=== PATIENT | female | born 1960 | race Caucasian/White ===

== ENCOUNTER 2024-05-18 12:26 | Inpatient (IN) | payer MEDICAID, OTHER ==
[~2024-05-18] VITALS: Ht 152.4 cm; Wt 89.2 kg
--- NOTE | 2024-05-18 13:17 | ED.PDOC ---
GI ASSESSMENT HPI Comments 64y F who presents to the ED for chief complaint of abdominal pain. Pt states she has been having lower abdominal pain for the past 5 days. Pt states she has history of cirrhosis and states she has ran out of her cirrhosis medications. Pt states she has been having associated changes in vision and dizziness and changes in mentation. Pt in the ED,is alert and oriented x 4 and able to answer all questions. Pt states she recently got new insuranance and is now able to see a provider. pt otherwise denies any other symptoms at this time. Chief Complaint: Abdominal Pain Time Seen by MD: 13:13 Reviewed Notes: Medications, Allergies Allergies: Coded Allergies: NO KNOWN ALLERGIES (Unverified , 05/18/24) Information Source: Patient Mode of Arrival: Ambulatory Brought in by: self Past Medical History Past Medical History (Other): cirrhosis Surgical History: Denies all surgeries WAX SPECIALIST History: Denies all WAX SPECIALIST Hx Family History Family History: Reviewed,noncontributory to illness Social History Smoker: Non-Smoker Alcohol: Heavy Drugs: Denies Drug Use Lives In: Home Constitutional: reports: malaise, weakness; denies: chills, diaphoresis, fatigue, fever, sweats, others EENTM: denies: blurred vision, double vision, ear bleeding, ear discharge, ear drainage, ear pain, ear ringing, eye pain, eye redness, hearing loss, mouth pain, mouth swelling, nasal discharge, nose bleeding, nose congestion, nose pain, photophobia, tearing, throat pain, throat swelling, voice changes, others Respiratory: denies: cough, hemoptysis, orthopnea, SOB at rest, shortness of breath, SOB with excertion, stridor, wheezing, others Cardiovascular: denies: chest pain, dizzy spells, diaphoresis, Dyspnea on exertion, edema, irregular heart beat, left arm pain, lightheadedness, palpitations, PND, syncope, others Gastrointestinal: denies: abdomen distended, abdominal pain, blood streaked bowels, constipated, diarrhea, dysphagia, difficulty swallowing, hematemesis, melena, nausea, poor appetite, poor fluid intake, rectal bleeding, rectal pain, vomiting, others Genitourinary: denies: abnormal vagina bleeding, burning, dyspareunia, dysuria, flank pain, frequency, hematuria, incontinence, pain, , vagina discharge, urgency, others Neurological: reports: dizziness; denies: fainting, headache, left sided numbness, left sided weakness, numbness, paresthesia, pre-existing deficit, right sided numbness, right sided weakness, seizure, speech problems, tingling, tremors, weakness, others Musculoskeletal: denies: back pain, gout, joint pain, joint swelling, muscle pain, muscle stiffness, neck pain, others Integumetry: denies: bruises, change in color, change in hair/nails, dryness, laceration, lesions, lumps, rash, wounds, others Allergic/Immunocompromised: denies: Difficulty Healing, Frequent Infections, Hives, Itching, others Hematologic/Lymphatic: denies: anemia, blood clots, easy bleeding, easy bruising, swollen glands, others Endocrine: denies: excessive hunger, excessive sweating, excessive thirst, excessive urination, flushing, intolerance to cold, intolerance to heat, un explained weight gain, unexplained weight loss, others Psychiatric: denies: anxiety, bipolar disorder, depression, hopeless, panic disorder, schizophrenia, sleepless, suicidal, others All Other Systems: Reviewed and Negative Physical Exam General Appearance: Mild Distress HEENT: Normal ENT Inspection, Pharynx Normal, TMs Normal Neck: Full Range of Motion, Non-Tender, Normal, Normal Inspection Respiratory: Chest Non-Tender, Lungs Clear, No Accessory Muscle Use, No Respiratory Distress, Normal Breath Sounds Cardiovascular: No Edema, No JVD, No Murmur, No Gallop, Normal Peripheral Pulses, Regular Rate/Rhythm Breast Exam: Deferred Gastrointestinal: No Organomegaly, Non Tender, No Pulsatile Mass, Normal Bowel Sounds, Soft Genitalia: Deferred Pelvic: Deferred Rectal: Deferred Extremities: No calf tenderness, Normal capillary refill, Normal inspection, Normal range of motion, Non-tender, No pedal edema Musculoskeletal : Apperance: Normal Neurologic: Other (mild Asterixis noted to bilateral arms) Cerebellar Function: Normal Reflexes: Normal Skin: Dry, Normal Color, Warm Lymphatic: No Adenopathy Was a procedure done? Was a procedure done?: No GI differential Dx Differential Diagnosis: Esophagitis, Gastritis/PUD, Gastroenteritis, UTI, Dehydration, Esophageal Varicies Other Differential Diagnosis liver disease, cirrhosis, hyperammonemia, electrolyte abnormality X-Ray, Labs, Meds, VS Vital Signs Date Time Temp Pulse Resp B/P (MAP) Pulse Ox O2 Delivery O2 Flow Rate FiO2 05/18/24 12:58 80 05/18/24 12:55 98.0 81 18 116/60 (78) 99 Lab Test 05/18/24 14:15 05/18/24 13:24 Range/Units Troponin I High Sensitivity < 3 L 3 L </=34 ng/L White Blood Count 11.6 H 4.4-10.8 10^3/uL Red Blood Count 3.81 L 4.0-5.20 10^6/uL Hemoglobin 12.4 12.2-16.2 g/dL Hematocrit 36.3 36.0-46.0 % Mean Corpuscular Volume 95.3 80.0-100.0 fL Mean Corpuscular Hemoglobin 32.7 H 28.0-32.0 pg Mean Corpuscular Hemoglobin Concent 34.3 32.0-36.0 g/dL Red Cell Distribution Width 15.8 H 11.8-14.3 % Platelet Count 201 140-450 10^3/uL Mean Platelet Volume 8.6 6.9-10.8 fL Neutrophils (%) (Auto) 58.0 37.0-80.0 % Lymphocytes (%) (Auto) 27.6 10.0-50.0 % Monocytes (%) (Auto) 12.4 H 0.0-12.0 % Eosinophils (%) (Auto) 1.3 0.0-7.0 % Basophils (%) (Auto) 0.7 0.0-2.0 % Neutrophils # (Auto) 6.7 1.6-8.6 10 ^3/uL Lymphocytes # (Auto) 3.2 0.4-5.4 10 ^3/uL Monocytes # (Auto) 1.4 H 0-1.3 10 ^3/uL Eosinophils # (Auto) 0.2 0-0.8 10 ^3/uL Basophils # (Auto) 0.1 0-0.2 10 ^3/uL Nucleated Red Blood Cells 0.0 % Prothrombin Time 20.4 H 9.3-11.8 sec Prothrombin Time INR 2.03 H 0.9-1.15 Activated Partial Thromboplast Time 35.4 H 24.5-34.5 SEC Sodium Level 145 136-145 mmol/L Potassium Level 3.6 3.5-5.1 mmol/L Chloride Level 110 H 98-107 mmol/L Carbon Dioxide Level 27 20-31 mmol/L Anion Gap 8 5-15 Blood Urea Nitrogen 7 L 9-23 mg/dL Creatinine 0.49 L 0.550-1.02 mg/dL Glomerular Filtration Rate Calc 106 >90 mL/min BUN/Creatinine Ratio 14.3 10.0-20.0 Serum Glucose 92 74-106 mg/dL Calcium Level 8.9 8.7-10.4 mg/dL Total Bilirubin 3.9 H 0.2-1.0 mg/dL Aspartate Amino Transferase (AST) 71 H 13-40 U/L Alanine Aminotransferase (ALT) 55 H 7-40 U/L Alkaline Phosphatase 199 H 46-116 U/L Ammonia 48 H 11-32 umol/L Total Protein 6.4 5.7-8.2 g/dL Albumin 2.5 L 3.2-4.8 g/dL Time of 1ST Reevaluation: 13:45 Reevaluation 1ST: Unchanged Patient Education/Counseling: Diagnosis, Treatment Family Education/Counseling: No Family Present Departure 1 Departure Time of Disposition: 16:19 (Patient with concern for hepatic encephalopathy with elevated ammonia and worsening confusion. We will admit patient for further workup) Impression: Primary Impression: Hyperammonemia Additional Impressions: Altered mental status Qualified Codes: R41.0 - Disorientation, unspecified Hepatic encephalopathy Disposition: ADMITTED INPATIENT Admit to: Med Surg Condition: Serious Critical Care Note Critical Care Time?: No Stability Stability form required: No Heart Score Heart Score: Heart Score Response (Comments) Value History N/A 0 EKG N/A 0 Age N/A 0 Risk Factors N/A 0 Troponin N/A 0 Total 0 I personally scribed for KACY SIMS MD ([email or web address]) on 05/18/24 at 13:16. Electronically submitted by Mercedez Huddleston ([email or web address]). KACY SIMS MD May 18, 2024 13:16
[2024-05-18 13:48] LABS: Basophils # (auto) 0.1 10 ^3/uL (0-0.2); Basophils % (auto) 0.7 % (0.0-2.0); Eosinophils # (auto) 0.2 10 ^3/uL (0-0.8); Eosinophils % (auto) 1.3 % (0.0-7.0); Hematocrit 36.3 % (36.0-46.0); Hemoglobin 12.4 g/dL (12.2-16.2); Lymphocytes # (auto) 3.2 10 ^3/uL (0.4-5.4); Lymphocytes % (auto) 27.6 % (10.0-50.0); Mean Corpuscular Hemoglobin 32.7 pg (28.0-32.0); Mean Corpuscular Hgb Conc. 34.3 g/dL (32.0-36.0); Mean Corpuscular Volume 95.3 fL (80.0-100.0); Monocytes # (auto) 1.4 10 ^3/uL (0-1.3); Monocytes % (auto) 12.4 % (0.0-12.0); Neutrophils # (auto) 6.7 10 ^3/uL (1.6-8.6); Platelet Count (auto) 201 10^3/uL (140-450); Red Blood Cells 3.81 10^6/uL (4.0-5.20); Red Cell Distribution Width 15.8 % (11.8-14.3); White Blood Cell 11.6 10^3/uL (4.4-10.8)
[2024-05-18 14:08] LABS: Alanine Aminotransferase 55 U/L (7-40); Albumin 2.5 g/dL (3.2-4.8); Alkaline Phosphatase 199 U/L (46-116); Anion Gap 8 (5-15); Aspartate Aminotransferase 71 U/L (13-40); BUN/Creatinine Ratio 14.3 (10.0-20.0); Bilirubin, Total 3.9 mg/dL (0.2-1.0); Blood Urea Nitrogen 7 mg/dL (9-23); Calcium 8.9 mg/dL (8.7-10.4); Carbon Dioxide 27 mmol/L (20-31); Chloride 110 mmol/L (98-107); Glucose 92 mg/dL (74-106); Potassium 3.6 mmol/L (3.5-5.1); Sodium 145 mmol/L (136-145); Total Protein 6.4 g/dL (5.7-8.2)
[2024-05-18 14:34] LABS: INR 2.03 (0.9-1.15); Partial Thromboplastin Time 35.4 SEC (24.5-34.5); Prothrombin Time 20.4 sec (9.3-11.8)
[2024-05-18 21:32] VITALS: BP 114/60; PULSE 87; RESP 18; TEMP 98.3
[2024-05-18] MEDS: SODIUM CHLORIDE 0.9% 1,000 ML IV SCH (22:00)
[2024-05-18] MEDS ORDERED: MORPHINE SULFATE INJ 2 MG/ml SYRG IV PRN (22:00)
[2024-05-18] MEDS ORDERED: NITROGLYCERIN 0.4 MG SL TAB SL PRN (22:00)
[2024-05-18] MEDS: POTASSIUM CHL 20MEQ/100ML 100 ML IV SCH (22:00)
[2024-05-18] MEDS ORDERED: ONDANSETRON HCL 4 MG/2 ML VIAL IV PRN (22:00)
[2024-05-18] MEDS ORDERED: SIMETHICONE 80 MG CHEWABLE TABLET PO PRN (23:30)
[2024-05-18] MEDS: cefTRIAXone 2GM/50ML D5W 50 ML IV SCH (23:45)
--- NOTE | 2024-05-19 04:16 | DVH ---
INDICATION: Hepatobiliary obstruction TECHNIQUE: Multiple real-time sonographic images of the abdomen were obtained. COMPARISON: None FINDINGS: The liver is increased in echogenicity. The liver measures 16.9 cm. No intrahepatic biliar y ductal dilatation is noted. Hepatopetal flow in the main portal vein. The gallbladder is not visualized. The common duct measures 0.5 cm and is unremarkable. No perichol ecystic fluid is noted. Negative sonographic Staton's sign. The right kidney measures 10.7 cm. No hydronephrosis. The pancreas is not well visualized due to obscuration from bowel gas. The visualized portions of the IVC and aorta are grossly unremarkable. IMPRESSION: 1. Hepatic steatosis. 2. Gallbladder not visualized.
[2024-05-19 04:23] LABS: Basophils # (auto) 0.1 10 ^3/uL (0-0.2); Basophils % (auto) 0.7 % (0.0-2.0); Eosinophils # (auto) 0.2 10 ^3/uL (0-0.8); Hematocrit 31.6 % (36.0-46.0); Hemoglobin 10.9 g/dL (12.2-16.2); Lymphocytes # (auto) 2.9 10 ^3/uL (0.4-5.4); Lymphocytes % (auto) 26.5 % (10.0-50.0); Mean Corpuscular Hemoglobin 32.9 pg (28.0-32.0); Mean Corpuscular Hgb Conc. 34.5 g/dL (32.0-36.0); Mean Corpuscular Volume 95.1 fL (80.0-100.0); Monocytes # (auto) 1.5 10 ^3/uL (0-1.3); Monocytes % (auto) 14.3 % (0.0-12.0); Neutrophils # (auto) 6.1 10 ^3/uL (1.6-8.6); Neutrophils % (auto) 56.5 % (37.0-80.0); Platelet Count (auto) 162 10^3/uL (140-450); Red Blood Cells 3.32 10^6/uL (4.0-5.20); Red Cell Distribution Width 15.3 % (11.8-14.3); White Blood Cell 10.8 10^3/uL (4.4-10.8)
[2024-05-19 04:37] LABS: Alanine Aminotransferase 46 U/L (7-40); Albumin 2.2 g/dL (3.2-4.8); Alkaline Phosphatase 163 U/L (46-116); Anion Gap 7 (5-15); Aspartate Aminotransferase 63 U/L (13-40); Bilirubin, Total 3.2 mg/dL (0.2-1.0); Blood Urea Nitrogen 6 mg/dL (9-23); Calcium 8.5 mg/dL (8.7-10.4); Carbon Dioxide 27 mmol/L (20-31); Chloride 113 mmol/L (98-107); Glucose 70 mg/dL (74-106); Potassium 3.7 mmol/L (3.5-5.1); Sodium 147 mmol/L (136-145); Total Protein 5.7 g/dL (5.7-8.2)
--- NOTE | 2024-05-19 05:44 | DVHHPRES ---
History of Present Illness Resident Creating Document: CASTILLO LONDON RESIDENT History of Present Illness 64-year-old female patient with past medical history of liver cirrhosis and asthma who presents with lower abdominal pain, constipation and symptoms of hepatic encephalopathy. The abdominal pain began 5 days ago and is described as side bedside pain in lower abdomen and associated with constipation, which has occurred nightly since Wednesday. The patient also reports blurry vision, dizziness that is intermittent and has persisted for several days, nausea and vomiting with the last episode occurring today. In addition she describes changes in mentation including forgetfulness and difficulty remembering recent events, which has worsened over the past several days. These symptoms combined with the patient and history of cirrhosis are concerning for hepatic encephalopathy The patient acknowledged running out of her cirrhosis medication and has been u nable to see a primary care provider due to insurance issues. She has a history of heavy alcohol use, having quit 3 months ago after drinking 3-4 cans of beer daily. She also has a past history of marijuana and methamphetamine use, though she denies any current drug use. Family history is notable for sickle cell anemia on her mother's side and diabetes mellitus in her father. She lives with her family and denies any medication allergies. Past surgical history includes bariatric surgery. Review of Systems Review of Systems Constitutional: No: Fever, Chills, Sweats, Weakness, Malaise, Other Eyes: No: Pain, Vision change, Conjunctivae inflammation, Eyelid inflammation, Other, Redness ENT: No: Ear pain, Ear discharge, Nose pain, Nose discharge, Nose congestion, Mouth pain, Mouth swelling, Throat pain, Throat swelling, Other Respiratory: No Wheezing, Hemoptysis, Pleuritic Pain, Sputum, Wheezing, Other Cardiovascular: No: Chest Pain, Palpitations, Orthopnea, Paroxysmal Noc. Dyspnea, Edema, Lt Headedness, Other Gastrointestinal: Abdominal pain, nausea, constipation Musculoskeletal: No: other, neck pain, shoulder pain, arm pain, back pain, hand pain, leg pain, foot pain Neurological:; No: Weakness, Numbness, Incoordination, Change in speech, Confusion, Seizures Allergies: Coded Allergies: NO KNOWN ALLERGIES (Unverified , 05/18/24) Medications Current Medications Medications Dose Ordered Sig/Joe Route Start Time Stop Time Status Last Admin Dose Admin Sodium Chloride 1,000 ml @ 60 mls/hr [id number] IV 05/18/24 22:00 Ondansetron HCl 4 mg Q4HP PRN IV 05/18/24 22:00 Multivitamins 1 tab DAILY PO 05/19/24 10:00 Acetaminophen 650 mg Q6HP PRN PO 05/18/24 22:00 Morphine Sulfate 2 mg Q4HPRN PRN IV 05/18/24 22:00 Nitroglycerin 0.4 mg Q5MINP PRN SL 05/18/24 22:00 Morphine Sulfate 2 mg Q30M PRN IV 05/18/24 22:00 Dimethicone 40 mg QIDP PRN PO 05/18/24 23:30 Ceftriaxone Sodium/Dextrose 50 ml @ 50 mls/hr DAILY IV 05/18/24 23:45 Pantoprazole Sodium 40 mg DAILY IV 05/19/24 10:00 Prednisone 40 mg DAILY PO 05/19/24 10:00 Exam Vital Signs Vital Signs Date Time Temp Pulse Resp B/P (MAP) Pulse Ox O2 Delivery O2 Flow Rate FiO2 05/18/24 21:32 98.3 87 18 114/60 (78) 98.3 05/18/24 17:15 97 Exam Examination General Appearance: Alert, Oriented X3, Cooperative, No acute distress HEENT: EOMI Respiratory: Clear to auscultation, Normal air movement Cardiovascular: Regular rate, Normal S1, Normal S2 Abdominal: Distended, nontender, no guarding or rebound, Normal bowel sounds Extremities: No cyanosis, No edema, Normal pulses, No tenderness/swelling Skin: No rashes, No breakdown Neuro: Normal gait, Normal speech, Strength at 5/5 X4 ext, Normal tone, Sensation intact, Cranial nerves 3-12 NL, Reflexes 2+ Psych/Mental Status: Mental status NL, Mood NL Labs/Xrays Labs Test 05/19/24 03:38 05/18/24 23:47 05/18/24 16:20 05/18/24 13:24 Range/Units White Blood Count 10.8 4.4-10.8 10^3/uL Red Blood Count 3.32 L 4.0-5.20 10^6/uL Hemoglobin 10.9 L 12.2-16.2 g/dL Hematocrit 31.6 #L 36.0-46.0 % Mean Corpuscular Volume 95.1 80.0-100.0 fL Mean Corpuscular Hemoglobin 32.9 H 28.0-32.0 pg Mean Corpuscular Hemoglobin Concent 34.5 32.0-36.0 g/dL Red Cell Distribution Width 15.3 H 11.8-14.3 % Platelet Count 162 140-450 10^3/uL Mean Platelet Volume 8.5 6.9-10.8 fL Neutrophils (%) (Auto) 56.5 37.0-80.0 % Lymphocytes (%) (Auto) 26.5 10.0-50.0 % Monocytes (%) (Auto) 14.3 H 0.0-12.0 % Eosinophils (%) (Auto) 2.0 0.0-7.0 % Basophils (%) (Auto) 0.7 0.0-2.0 % Neutrophils # (Auto) 6.1 1.6-8.6 10 ^3/uL Lymphocytes # (Auto) 2.9 0.4-5.4 10 ^3/uL Monocytes # (Auto) 1.5 H 0-1.3 10 ^3/uL Eosinophils # (Auto) 0.2 0-0.8 10 ^3/uL Basophils # (Auto) 0.1 0-0.2 10 ^3/uL Nucleated Red Blood Cells 0.0 % Sodium Level 147 H 136-145 mmol/L Potassium Level 3.7 3.5-5.1 mmol/L Chloride Level 113 H 98-107 mmol/L Carbon Dioxide Level 27 20-31 mmol/L Anion Gap 7 5-15 Blood Urea Nitrogen 6 L 9-23 mg/dL Creatinine 0.43 L 0.550-1.02 mg/dL Glomerular Filtration Rate Calc 109 >90 mL/min BUN/Creatinine Ratio 14.0 10.0-20.0 Serum Glucose 70 L 74-106 mg/dL Calcium Level 8.5 L 8.7-10.4 mg/dL Total Bilirubin 3.2 H 0.2-1.0 mg/dL Aspartate Amino Transferase (AST) 63 H 13-40 U/L Alanine Aminotransferase (ALT) 46 H 7-40 U/L Alkaline Phosphatase 163 H 46-116 U/L Total Protein 5.7 5.7-8.2 g/dL Albumin 2.2 L 3.2-4.8 g/dL Troponin I High Sensitivity 4 </=34 ng/L B-Type Natriuretic Peptide 147.37 0-100 pg/mL Plasma/Serum Blood Alcohol < 3.0 <10 mg/dL Direct Bilirubin 2.1 H <0.3 mg/dL Prothrombin Time 20.4 H 9.3-11.8 sec Prothrombin Time INR 2.03 H 0.9-1.15 Activated Partial Thromboplast Time 35.4 H 24.5-34.5 SEC Ammonia 48 H 11-32 umol/L Assessment/Plan Assessment/Plan #Acute Abdominal pain and constipation likely secondary to alcoholic liver cirrhosis and possible portal hypertension. --GI consult -Prednisone 40 mg p.o. daily -Ceftriaxone 2 g IV daily -Stool occult blood -Simethicone 40 mg p.o. -Stool occult blood -Lactulose 15 mL p.o. t.i.d. -Blood culture #?Acute hepatic encephalopathy secondary to hyperammonemia due to decompensated alcoholic liver cirrhosis -Lactulose 15 mL p.o. t.i.d. #Transaminitis, hypoalbuminemia and increased alkaline phosphatase likely due to worsening liver function due to decompensated liver cirrhosis -Liver ultrasound -Bilirubin direct -Drug screen -Blood alcohol #History of alcohol abuse #History of drug abuse #Type 1 obesity -Lifestyle modification counseling, encourage dietary habits and physical activity improvement Case discussed with Dr. Chopra Goals of care discussed with the patient for 44 minutes Code status: Full code Plan discussed with: Patient My Orders Orders - CASTILLO LONDON RESIDENT Procedure Category Date Status Time Allergies OREN 05/18/24 In Process 21:50 Code Status CODE 05/18/24 Transmitted 21:50 Sodium Chloride 0.9% PHA 05/18/24 In Process 22:00 Ondansetron Hcl PHA 05/18/24 In Process (Zofran) 22:00 Multiple Vitamin PHA 05/19/24 In Process Tablet (Mvi Tab) 10:00 Npo (Nothing By DIET 05/19/24 Transmitted Mouth) Diet Breakfast Acetaminophen Tablet PHA 05/18/24 In Process (Tylenol Tablet) 22:00 Morphine Sulfate PHA 05/18/24 In Process Injection 22:00 Nitroglycerin PHA 05/18/24 In Process Sublingual (Ntrostat 22:00 Morphine Sulfate PHA 05/18/24 In Process Injection 22:00 Oxygen By Nasal RT 05/18/24 Transmitted Cannula 21:50 Stat Ekg For Chest OREN 05/18/24 In Process Pain 21:50 Notify Of Changes OREN 05/18/24 In Process From Base 21:50 Highway Engineer For [facility] 05/18/24 In Process 24 Hours 21:50 Emergency Dysrhythmia [facility] 05/18/24 In Process Protocol 21:50 Rhythm Strips Once [facility] 05/18/24 In Process Every Shift 21:50 Date of Service: May 18, 2024 Billing Provider: VIVEK CHOPRA MD Common Visit Codes: [id number] INP/OBS CARE (HIGH) CASTILLO LONDON RESIDENT May 19, 2024 05:44 VIVEK CHOPRA MD May 20, 2024 08:26
[2024-05-19] MEDS: LACTULOSE 20Gm/30ML SOLN PO ONE ×2 (06:00→16:08)
[2024-05-19 07:42] VITALS: PULSE 80; RESP 16; O2SAT 97
--- NOTE | 2024-05-19 09:23 | DVH ---
Date: 05/19/2024 08:27 AM Examination: XY KUB ABDOMEN SINGLE VIEW History: constipation Comparison: TECHNIQUE: Frontal views of the abdomen was obtained. FINDINGS: Bowel gas pattern is unremarkable. The lung bases are unremarkable. No acute osseous abnormality identified. IMPRESSION: Nonobstructive bowel gas pattern. Large stool burden.
[2024-05-19] MEDS ORDERED: predniSONE 20 MG TAB PO SCH (10:00)
[2024-05-19] MEDS ORDERED: prednisoLONE 15 MG/5 ML ORAL UD PO SCH (10:00)
[2024-05-19] MEDS: MULTIPLE VITAMIN TAB PO SCH (10:14)
[2024-05-19] MEDS: PANTOPRAZOLE 40 MG/10 ML VIAL INJ IV SCH (10:14)
--- NOTE | 2024-05-19 10:57 | DVHPNRES ---
Progress Note Date Seen: May 19, 2024 Resident Creating Document: MARICARMEN GOSS RESIDENT Has the PT tested + for MRSA If YES, has PT been informed?: No Medical Necessity Reason Pt with a Central, PICC or Fol: No Subjective Review of Systems This is a 64-year-old female with pmhx significant for recently diagnosed liver cirrhosis ( 01/2024), hypothyroidism, and asthma. She presented to the ED yesterday with pain in the lower abdomen. According to the patient, she has been having intermittent lower abdominal but it became severe on Wednesday05/13/2024. Patient acknowledged that lower abdominal pain was progressively getting worse and she has noticed difficulties with bowel movement. The last regular bowel movement was 3 days prior to coming to the ED. Patient acknowledged difficulties with her urinary flowing with is concerning. she said her urine quantity is little compared to before. That together with the worsening lower abdominal pain, prompted the patient to come to the ED. In the ED, patient denied fever, vomiting. However she does have nausea. Patient denied dysuria, hematemesis or hematochezia. Initial vitals were normal limits. Lab work up showed: WBC OF 11.6, hemoglobin of 12 0.4-10.9, platelets 201. Chemistry revealed Na: 147, AST: 63, ALT' 46, ALP: 163. UA is positive for UTI. KUB revealed Nonobstructive bowel gas pattern. Large stool burden. Liver US showed Hepatic steatosis Gallbladder not visualized. PMHx: liver cirrhosis, hypothyroidism, asthma Pshx: gastric sleeve and duodenojejunostomy ( bariatric surgery [id number]) for weight loss. Fhx: noncontributory Social history: 35 years of alcohol abuse, history marijuana and methamphetamine use; use to work at a [employer] in [place] Review of Systems Constitutional: No: Fever, Chills, Sweats, Weakness, Malaise, Other Eyes: No: Pain, Vision change, Conjunctivae inflammation, Eyelid inflammation, Other, Redness ENT: No: Ear pain, Ear discharge, Nose pain, Nose discharge, Nose congestion, Mouth pain, Mouth swelling, Throat pain, Throat swelling, Other Respiratory: No Wheezing, Hemoptysis, Pleuritic Pain, Sputum, Wheezing, Other Cardiovascular: No: Chest Pain, Palpitations, Orthopnea, Paroxysmal Noc. Dyspnea, Edema, Lt Headedness, Other Gastrointestinal: Abdominal pain, nausea, constipation Musculoskeletal: No: other, neck pain, shoulder pain, arm pain, back pain, hand pain, leg pain, foot pain Neurological:; No: Weakness, Numbness, Incoordination, Change in speech, Confusion, Seizures Allergies: NO KNOWN ALLERGIES (Unverified , 05/18/24) Objective vital signs Vital Sign Date Time Temp Pulse Resp B/P (MAP) Pulse Ox O2 Delivery O2 Flow Rate FiO2 05/19/24 07:42 80 16 97 Room Air* 0 21 05/19/24 07:40 118/70 (86) 05/18/24 21:32 98.3 98.3 medications Current Medications Medications Dose Ordered Sig/Joe Route Start Time Stop Time Status Last Admin Dose Admin Sodium Chloride 1,000 ml @ 60 mls/hr [id number] IV 05/18/24 22:00 05/18/24 22:00 60 MLS/HR Ondansetron HCl 4 mg Q4HP PRN IV 05/18/24 22:00 Multivitamins 1 tab DAILY PO 05/19/24 10:00 Acetaminophen 650 mg Q6HP PRN PO 05/18/24 22:00 Morphine Sulfate 2 mg Q4HPRN PRN IV 05/18/24 22:00 Nitroglycerin 0.4 mg Q5MINP PRN SL 05/18/24 22:00 Morphine Sulfate 2 mg Q30M PRN IV 05/18/24 22:00 Dimethicone 40 mg QIDP PRN PO 05/18/24 23:30 Ceftriaxone Sodium/Dextrose 50 ml @ 50 mls/hr DAILY IV 05/18/24 23:45 05/18/24 23:45 50 MLS/HR Pantoprazole Sodium 40 mg DAILY IV 05/19/24 10:00 Examination General Appearance: Alert, Oriented X3, Cooperative, No acute distress HEENT: PERRLA, EOMI, no icteric Respiratory: Clear to auscultation, Normal air movement Cardiovascular:Regular rate, Normal S1, Normal S2 Abdominal: Distended, tender in the lower quadrant; no guarding or rebound, Normal bowel sounds Extremities: Mild edema, Normal pulses, No tenderness Skin: No rashes, No breakdown Neuro: Normal gait, Normal speech, Strength at 5/5 X4 ext, Normal tone, Sensation intact, Cranial nerves 3-12 NL, Reflexes 2+ Psych/Mental Status: Mental status NL, Mood NL laboratory and microbiology Laboratory Tests 05/19/24 03:38 Test 05/19/24 03:38 Range/Units Serum Glucose 70 L 74-106 mg/dL Problem List/Assessment/Plan Problem List/Assessment/Plan Abdominal pain rule out obstruction vs Constipation --> History of bariactic surgery --> kub: Nonobstructive bowel gas pattern. Large stool burden ->Consider CT abdomen if no improvement by tomorrow UTI -->UA positive --> wbc: 11.6 -->Ceftriaxone Possible acute Hepatic encephalopathy --> Ammonia: 48 H --> recently liver cirrhosis --> on Lactulose ran out couple of days prior to coming to the ED --> On lactulose Hypernatremia -->monitor electrolyte hypoalbuminemia albumin: 2.2 Obesity bmi 33.1 Will address healthy lifestyle changes prior to discharge Code status: Full code Goal of care discussed for more than 25 minute Case and plan discussed with Dr. Werner Plan discussed with: Patient Date of Service: May 19, 2024 Billing Provider: SUSANA GARY MD Common Visit Codes: [id number] INP/OBS CARE(HIGH) MARICARMEN GOSS RESIDENT May 19, 2024 10:57 SUSANA GARY MD May 21, 2024 09:16
--- NOTE | 2024-05-19 11:54 | ECG ---
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
[2024-05-19 14:02] LABS: Urine Bacteria None Seen /hpf (None Seen)
[2024-05-19 14:32] LABS: Urine Blood TRACE /uL (Negative); Urine Clarity Turbid (Clear); Urine Color Dark-Orange (Yellow); Urine Mucus FEW (None Seen); Urine Protein, UAD 2+ (Negative); Urine Urobilinogen 12 mg/dL (Negative); Urine WBC 23 /hpf (0 - 5)
[2024-05-19 14:42] LABS: Amphetamine Screen, Urine Neg (NEGATIVE); Barbiturate Scree,Urine Neg (NEGATIVE); Benzodiazephine Screen, Urine Neg (NEGATIVE)
[2024-05-19 14:43] LABS: Cannabinoid Screen, Urine Neg (NEGATIVE); Cocaine Screen, Urine Neg (NEGATIVE); Opiate Scree,Urine Neg (NEGATIVE); Phencyclidine Screen, Urine Neg (NEGATIVE)
[2024-05-19] MEDS: FLEET ENEMA(ADULT) 135 ML PR ONE (16:08)
[2024-05-19 19:15] VITALS: PULSE 92; RESP 16; O2SAT 97
[2024-05-19 19:20] LABS: Basophils # (auto) 0.1 10 ^3/uL (0-0.2); Basophils % (auto) 0.7 % (0.0-2.0); Eosinophils # (auto) 0.2 10 ^3/uL (0-0.8); Eosinophils % (auto) 1.6 % (0.0-7.0); Hematocrit 35.5 % (36.0-46.0); Hemoglobin 12.2 g/dL (12.2-16.2); Lymphocytes # (auto) 2.6 10 ^3/uL (0.4-5.4); Lymphocytes % (auto) 24.4 % (10.0-50.0); Mean Corpuscular Hemoglobin 32.9 pg (28.0-32.0); Mean Corpuscular Hgb Conc. 34.4 g/dL (32.0-36.0); Mean Corpuscular Volume 95.5 fL (80.0-100.0); Monocytes # (auto) 1.3 10 ^3/uL (0-1.3); Monocytes % (auto) 12.1 % (0.0-12.0); Neutrophils # (auto) 6.5 10 ^3/uL (1.6-8.6); Neutrophils % (auto) 61.2 % (37.0-80.0); Nucleated Red Blood Cells % 0.1 %; Platelet Count (auto) 192 10^3/uL (140-450); Red Blood Cells 3.71 10^6/uL (4.0-5.20); Red Cell Distribution Width 15.7 % (11.8-14.3); White Blood Cell 10.6 10^3/uL (4.4-10.8)
[2024-05-19 19:37] LABS: Alanine Aminotransferase 55 U/L (7-40); Albumin 2.6 g/dL (3.2-4.8); Alkaline Phosphatase 174 U/L (46-116); Anion Gap 8 (5-15); Aspartate Aminotransferase 72 U/L (13-40); BUN/Creatinine Ratio 10.3 (10.0-20.0); Bilirubin, Total 3.2 mg/dL (0.2-1.0); Blood Urea Nitrogen 6 mg/dL (9-23); Calcium 8.8 mg/dL (8.7-10.4); Carbon Dioxide 27 mmol/L (20-31); Chloride 112 mmol/L (98-107); Glucose 97 mg/dL (74-106); Potassium 3.2 mmol/L (3.5-5.1); Sodium 147 mmol/L (136-145); Total Protein 6.5 g/dL (5.7-8.2)
[2024-05-19 23:10] VITALS: PULSE 93; RESP 22; O2SAT 94
[2024-05-19 23:11] VITALS: BP 130/62; PULSE 93; RESP 22; TEMP 98.2; O2SAT 94
[2024-05-20] VITALS (8 sets, daily range): BP systolic 107–135; BP diastolic 61–72; PULSE 84–98; RESP 18; TEMP 97–98.4; O2SAT 96–100
[2024-05-20] MEDS ORDERED: POTASSIUM CHL 20 Meq TABLET PO ONE (00:22)
[2024-05-20] MEDS: POTASSIUM CHL 20 Meq TABLET PO ONE (00:25)
[2024-05-20] MEDS: MORPHINE SULFATE INJ 2 MG/ml SYRG IV PRN (00:26)
[2024-05-20] MEDS: ACETAMINOPHEN 325 MG TAB PO PRN (09:35)
--- NOTE | 2024-05-20 18:00 | DVHINCON2 ---
Date of service: May 20, [address] Melendez Reason for Consultation Liver cirrhosis and alcoholic hepatitis History of Present Illness This 64-year-old female presented with the complaints of constipation abdominal pain nausea vomiting confusion generalized weakness blurry vision Patient has history of liver cirrhosis heavy drinking and drug abuse no history of any hepatitis in the past Not sure that any hepatitis hepatitis has been checked recently Past Medical History Unremarkable except for history of alcoholism drug marijuana methamphetamine use Family history of diabetes as well as sickle celldisease Past Surgical History None Family History: Diabetes mellitus G8 FATHER Family History Sickle cell disease diabetes Social History History of heavy drinking and drug abuse Allergies: Coded Allergies: NO KNOWN ALLERGIES (Unverified , 05/18/24) Current Medications Current Medications Medications (Trade) Dose Ordered Sig/Joe Route PRN Reason Start Time Stop Time Status Last Admin Acetaminophen/ Hydrocodone Bitart ([place] 10/325MG Tab) 1 tab Q6HP PRN PO MODERATE PAIN (4-6 PAIN SCALE) 05/20/24 17:45 Review of Systems Noncontributory Vital Signs Vital Signs Date Time Temp Pulse Resp B/P (MAP) Pulse Ox O2 Delivery O2 Flow Rate FiO2 05/20/24 17:00 97.5 84 18 114/72 (86) 98 97.5 05/20/24 07:30 Room Air* 0 21 Physical Exam Originally built and nourished female in no acute distress very apprehensive HEENT examination unremarkable no pallor neck Lungs clear Cardiovascular unremarkable Abdomen minimal distention in the lower abdomen no rigidity no guarding no masses bowel sounds normal Extremities no edema no varicosities no clubbing Grossly intact there was slightly hyper and apprehensive Labs had shown that the bilirubin was 3.2 AST is 63 ALT of 646 alk-phos of 163. INR is 2.03 with prothrombin time 20.4. Ammonia level is 48 Labs/Diagnostic Data Labs Test 05/19/24 18:38 05/19/24 12:40 05/19/24 08:04 05/18/24 23:47 Range/Units White Blood Count 10.6 4.4-10.8 10^3/uL Red Blood Count 3.71 L 4.0-5.20 10^6/uL Hemoglobin 12.2 12.2-16.2 g/dL Hematocrit 35.5 #L 36.0-46.0 % Mean Corpuscular Volume 95.5 80.0-100.0 fL Mean Corpuscular Hemoglobin 32.9 H 28.0-32.0 pg Mean Corpuscular Hemoglobin Concent 34.4 32.0-36.0 g/dL Red Cell Distribution Width 15.7 H 11.8-14.3 % Platelet Count 192 140-450 10^3/uL Mean Platelet Volume 8.8 6.9-10.8 fL Neutrophils (%) (Auto) 61.2 37.0-80.0 % Lymphocytes (%) (Auto) 24.4 10.0-50.0 % Monocytes (%) (Auto) 12.1 H 0.0-12.0 % Eosinophils (%) (Auto) 1.6 0.0-7.0 % Basophils (%) (Auto) 0.7 0.0-2.0 % Neutrophils # (Auto) 6.5 1.6-8.6 10 ^3/uL Lymphocytes # (Auto) 2.6 0.4-5.4 10 ^3/uL Monocytes # (Auto) 1.3 0-1.3 10 ^3/uL Eosinophils # (Auto) 0.2 0-0.8 10 ^3/uL Basophils # (Auto) 0.1 0-0.2 10 ^3/uL Nucleated Red Blood Cells 0.1 % Sodium Level 147 H 136-145 mmol/L Potassium Level 3.2 L 3.5-5.1 mmol/L Chloride Level 112 H 98-107 mmol/L Carbon Dioxide Level 27 20-31 mmol/L Anion Gap 8 5-15 Blood Urea Nitrogen 6 L 9-23 mg/dL Creatinine 0.58 # 0.550-1.02 mg/dL Glomerular Filtration Rate Calc 102 >90 mL/min BUN/Creatinine Ratio 10.3 10.0-20.0 Serum Glucose 97 74-106 mg/dL Calcium Level 8.8 8.7-10.4 mg/dL Total Bilirubin 3.2 H 0.2-1.0 mg/dL Aspartate Amino Transferase (AST) 72 H 13-40 U/L Alanine Aminotransferase (ALT) 55 H 7-40 U/L Alkaline Phosphatase 174 H 46-116 U/L Ammonia 24 11-32 umol/L Total Protein 6.5 5.7-8.2 g/dL Albumin 2.6 L 3.2-4.8 g/dL Urine Color Dark-orange Yellow Urine Clarity Turbid H Clear Urine pH 6.0 5.0-9.0 Urine Specific [place] 1.050 H 1.001-1.035 Urine Protein 2+ H Negative Urine Ketones Trace Negative Urine Blood Trace H Negative /uL Urine Nitrite Negative Negative Urine Bilirubin 2+ H Negative Urine Urobilinogen 12 H Negative mg/dL Urine Leukocyte Esterase 1+ Negative /uL Urine RBC 4 0 - 4 /hpf Urine WBC 23 0 - 5 /hpf Urine Squamous Epithelial Cells Many <5 /hpf Urine Bacteria None seen None Seen /hpf Urine Mucus Few None Seen Urine Glucose Normal Normal mg/dL Urine Opiates Screen Neg NEGATIVE Urine Fentanyl Screen Neg NEGATIVE Urine Barbiturates Screen Neg NEGATIVE Urine Phencyclidine Screen Neg NEGATIVE Urine Amphetamines Screen Neg NEGATIVE Urine Benzodiazepines Screen Neg NEGATIVE Urine Cocaine Screen Neg NEGATIVE Urine Cannabinoids Screen Neg NEGATIVE POC Glucose 78 70-106 mg/dl Troponin I High Sensitivity 4 </=34 ng/L B-Type Natriuretic Peptide 147.37 0-100 pg/mL Plasma/Serum Blood Alcohol < 3.0 <10 mg/dL Test 05/18/24 16:20 05/18/24 13:24 Range/Units Direct Bilirubin 2.1 H <0.3 mg/dL Prothrombin Time 20.4 H 9.3-11.8 sec Prothrombin Time INR 2.03 H 0.9-1.15 Activated Partial Thromboplast Time 35.4 H 24.5-34.5 SEC Microbiology Date/Time Source Procedure Growth Status 05/19/24 12:40 Voided Urine Urine Culture - Preliminary Resulted 05/18/24 23:47 Blood Blood Culture - Preliminary NO GROWTH AFTER 24 HOURS OF INCUBATION. Resulted Assessment 64-year-old with history of liver cirrhosis asthma abdominal pain constipation and symptoms suggestive of hepatic encephalopathy with high ammonia level No gross GI bleeding Clinical impression alcoholic liver disease with alcoholic hepatitis and early encephalopathy Plan/Recommendation Recommend treat to treat conservatively with lactulose on monitor the liver functions closely will recommend a hepatitis panel if not done in the past will recommend later when more sober and call referral to a hepatology center for possible liver liver transplant evaluation later Thank you Dr. Busby Plan discussed with: Patient PADMAJA BUSBY MD May 20, 2024 18:00
--- NOTE | 2024-05-20 22:27 | DVHPNRES ---
Progress Note Date Seen: May 20, 2024 Resident Creating Document: MARICARMEN GOSS RESIDENT Has the PT tested + for MRSA If YES, has PT been informed?: No Medical Necessity Reason Pt with a Central, PICC or Fol: No Subjective Review of Systems Patient is seen and examined at the bedside today. She is doing a lot better. She does not have abdominal pain anymore and the constipation is also resolved after giving him the enema yesterday. Patient says she was able to have 4 bowel movements and she feels a lot better today. Will continue to severo the UTI She complained for generalized body pain from sitting in the chairs in ED. Constitutional: Denies fever no chills no feeling of malaise HEENT: Denies headache, ear pain, ear discharges, conjunctivitis, nasal discharge throat pain Cardiovascular: Denies chest pain, palpitation, orthopnea, PND, or pedal edema Respiratory: Denies shortness of breath, cough cough, sputum production, hemoptysis, GI: abdominal pain improving, constipation is resolved; No nausea, vomiting, diarrhea, hematemesis, hematochezia, : Denies frequency, urgency, hematuria, Endocrine: Denies unintentional weight gain or weight loss, feeling of hot flashes, Arjun: Denies easy bruising, bleeding disorders, epistaxis Musculoskeletal: Denies joint pains, muscle aches Psych: No evidence of depression, kerri, suicidal ideation Objective vital signs Vital Sign Date Time Temp Pulse Resp B/P (MAP) Pulse Ox O2 Delivery O2 Flow Rate FiO2 05/20/24 21:00 97.1 97 18 135/61 (85) 98 97.1 05/20/24 07:30 Room Air* 0 21 Total Intake and Output 05/19/24 05/19/24 05/20/24 15:00 23:00 07:00 Intake Total 230 ml 0 ml Balance 230 ml 0 ml medications Current Medications Medications Dose Ordered Sig/Joe Route Start Time Stop Time Status Last Admin Dose Admin Ondansetron HCl 4 mg Q4HP PRN IV 05/18/24 22:00 Multivitamins 1 tab DAILY PO 05/19/24 10:00 05/20/24 09:35 1 TAB Acetaminophen 650 mg Q6HP PRN PO 05/18/24 22:00 05/20/24 16:16 650 MG Morphine Sulfate 2 mg Q4HPRN PRN IV 05/18/24 22:00 05/20/24 05:29 2 MG Nitroglycerin 0.4 mg Q5MINP PRN SL 05/18/24 22:00 Morphine Sulfate 2 mg Q30M PRN IV 05/18/24 22:00 Dimethicone 40 mg QIDP PRN PO 05/18/24 23:30 Ceftriaxone Sodium/Dextrose 50 ml @ 50 mls/hr DAILY IV 05/18/24 23:45 05/20/24 11:02 50 MLS/HR Pantoprazole Sodium 40 mg DAILY IV 05/19/24 10:00 05/20/24 09:35 40 MG Acetaminophen/ Hydrocodone Bitart 1 tab Q6HP PRN PO 05/20/24 17:45 Examination General examination- Not in acute distress HEENT: PEERLA, no acute nasal discharge Chest: S1-S2 audible, rate and rhythm regular, no murmur Lung: CTAB, no wheeze or rhonchi Abdomen: Nondistend, BS+, nontenderness, no organomegaly Musculoskeletal: Acute joint tenderness and generalized body pain, Lower extremity: no leg edema Neurological: cranial nerves intact, no acute dysarthria or dysphagia Psychiatry-- Normal mood and affect Skin- no acute rash or purpura laboratory and microbiology Laboratory Tests 05/19/24 18:38 Test 05/19/24 18:38 Range/Units Serum Glucose 97 74-106 mg/dL Microbiology Date/Time Source Procedure Growth Status 05/19/24 12:40 Voided Urine Urine Culture - Preliminary Resulted 05/18/24 23:47 Blood Blood Culture - Preliminary NO GROWTH AFTER 24 HOURS OF INCUBATION. Resulted Problem List/Assessment/Plan Problem List/Assessment/Plan Abdominal pain secondary to constipation--> resolved after enema --> History of bariactic surgery, obstruction ruled out --> kub: Nonobstructive bowel gas pattern. Large stool burden ->For possible discharge tomorrow 05/21/2024 with bowel regimen ( lactulose, docusate or Senna) UTI -->UA positive --> wbc: 11.6 -->Ceftriaxone Possible acute Hepatic encephalopathy --> Ammonia: 48 H --> recently liver cirrhosis --> on Lactulose ran out couple of days prior to coming to the ED --> On lactulose --> Furosemide and Spirinolactone: to continue home medication Hypernatremia -->monitor electrolyte hypoalbuminemia albumin: 2.2 Generalized joint pains --> PT evaluation Obesity bmi 33.1 Will address healthy lifestyle changes prior to discharge COVID and influenza negative Code status: Full code Goal of care discussed for more than 20 minute Case and plan discussed with Dr. Werner Plan discussed with: Patient My Orders My Orders Orders - MARICARMEN GOSS Procedure Category Date Status Time Regular Diet DIET 05/20/24 Transmitted Lunch Hydrocodone-Acet PHA 05/20/24 In Process 10/325mg Tab ([place] 17:45 Date of Service: May 21, 2024 Billing Provider: SUSANA GARY MD Common Visit Codes: [id number] INP/OBS CARE(HIGH) MARICARMEN GOSS May 20, 2024 22:27 SUSANA GARY MD May 29, 2024 00:31
[2024-05-20] MEDS: HYDROcodone-ACET 10/325MG TAB PO PRN (22:32)
[2024-05-20] MEDS ORDERED: FURO20TA3 PO (22:46)
[2024-05-20] MEDS ORDERED: SPIR25TA8 PO (22:46)
[2024-05-20] MEDS ORDERED: LEVO200T7 PO (22:46)
[2024-05-20 22:49] LABS: Basophils # (auto) 0.1 10 ^3/uL (0-0.2); Basophils % (auto) 0.8 % (0.0-2.0); Eosinophils # (auto) 0.3 10 ^3/uL (0-0.8); Eosinophils % (auto) 2.2 % (0.0-7.0); Hematocrit 33.1 % (36.0-46.0); Hemoglobin 11.2 g/dL (12.2-16.2); Lymphocytes # (auto) 2.7 10 ^3/uL (0.4-5.4); Mean Corpuscular Hemoglobin 32.1 pg (28.0-32.0); Mean Corpuscular Hgb Conc. 33.8 g/dL (32.0-36.0); Mean Corpuscular Volume 95.2 fL (80.0-100.0); Monocytes # (auto) 1.6 10 ^3/uL (0-1.3); Monocytes % (auto) 13.6 % (0.0-12.0); Neutrophils % (auto) 60.4 % (37.0-80.0); Nucleated Red Blood Cells % 0.1 %; Platelet Count (auto) 158 10^3/uL (140-450); Red Blood Cells 3.47 10^6/uL (4.0-5.20); Red Cell Distribution Width 16.1 % (11.8-14.3); White Blood Cell 11.6 10^3/uL (4.4-10.8)
[2024-05-20 23:01] LABS: Chloride 113 mmol/L (98-107); Sodium 142 mmol/L (136-145)
[2024-05-20 23:02] LABS: Anion Gap 7 (5-15); Calcium 8.3 mg/dL (8.7-10.4); Carbon Dioxide 22 mmol/L (20-31)
[2024-05-20 23:07] LABS: BUN/Creatinine Ratio 10.2 (10.0-20.0); Blood Urea Nitrogen 6 mg/dL (9-23); Glucose 107 mg/dL (74-106)
[2024-05-21] VITALS (9 sets, daily range): BP systolic 100–114; BP diastolic 53–65; PULSE 85–119; RESP 17–20; TEMP 37.3; O2SAT 90–97
[2024-05-21 03:05] LABS: COVID19 ANTIGEN SOFIA FIA NEGATIVE (NEGATIVE); Rapid Influenza A Negative (Negative); Rapid Influenza B Negative (Negative)
[2024-05-21] MEDS: FUROSEMIDE 20 MG TAB PO SCH (09:03)
[2024-05-21] MEDS: SPIRONOLACTONE 25 MG TAB PO SCH (09:04)
[2024-05-21 09:14] LABS: Chloride 111 mmol/L (98-107); Potassium 3.6 mmol/L (3.5-5.1); Sodium 142 mmol/L (136-145)
[2024-05-21 09:15] LABS: Anion Gap 8 (5-15); Carbon Dioxide 23 mmol/L (20-31)
[2024-05-21 09:16] LABS: Calcium 8.3 mg/dL (8.7-10.4)
[2024-05-21 09:21] LABS: BUN/Creatinine Ratio 13.5 (10.0-20.0); Blood Urea Nitrogen 7 mg/dL (9-23); Glucose 94 mg/dL (74-106)
[2024-05-21] MEDS ORDERED: SPIRONOLACTONE 25 MG TAB PO SCH (10:00)
[2024-05-21] MEDS: PROPRANOLOL PO SCH (10:00)
[2024-05-21] MEDS: diphenhdrAMINE HCL 50 MG/1 ML VL IV ONE (12:13)
[2024-05-21] MEDS ORDERED: LEVO200T7 PO (13:00)
[2024-05-21] MEDS ORDERED: SPIR25TA8 PO (13:00)
[2024-05-21] MEDS ORDERED: FURO20TA3 PO (13:00)
[2024-05-21] MEDS ORDERED: CEPH250C PO (13:00)
[2024-05-21] MEDS ORDERED: SIME80CH13 PO (13:00)
--- NOTE | 2024-05-21 14:19 | DVH ---
EXAM: XY R HIP COMPLETE XRAY CLINICAL HISTORY: right hip pain COMPARISON: None TECHNIQUE: XY R HIP COMPLETE XRAY Findings/Impression: 2 views of the right hip with frontal view of the pelvis. There is no evidence of an acute fracture, dislocation, blastic, or lytic lesions. Mild degenerative changes of the right hip. No radiopaque foreign bodies. No joint effusion or superficial soft tissue abnormalities.
--- NOTE | 2024-05-21 14:40 | DVHDSRES ---
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 Labs/Diagnostic Data: Laboratory Results Test 05/21/24 08:46 05/21/24 02:00 05/20/24 22:40 05/20/24 21:48 Sodium Level 142 mmol/L (136-145) Potassium Level 3.6 mmol/L (3.5-5.1) Chloride Level 111 mmol/L (98-107) Carbon Dioxide Level 23 mmol/L (20-31) Anion Gap 8 (5-15) Blood Urea Nitrogen 7 mg/dL (9-23) Creatinine 0.52 mg/dL (0.550-1.02) Glomerular Filtration Rate Calc 104 mL/min (>90) BUN/Creatinine Ratio 13.5 (10.0-20.0) Serum Glucose 94 mg/dL (74-106) Calcium Level 8.3 mg/dL (8.7-10.4) Influenza Type A Antigen Negative (Negative) Influenza Type B Antigen Negative (Negative) SARS-CoV-2 Antigen (Rapid) Negative (NEGATIVE) White Blood Count 11.6 10^3/uL (4.4-10.8) Red Blood Count 3.47 10^6/uL (4.0-5.20) Hemoglobin 11.2 g/dL (12.2-16.2) Hematocrit 33.1 % (36.0-46.0) Mean Corpuscular Volume 95.2 fL (80.0-100.0) Mean Corpuscular Hemoglobin 32.1 pg (28.0-32.0) Mean Corpuscular Hemoglobin Concent 33.8 g/dL (32.0-36.0) Red Cell Distribution Width 16.1 % (11.8-14.3) Platelet Count 158 10^3/uL (140-450) Mean Platelet Volume 8.2 fL (6.9-10.8) Neutrophils (%) (Auto) 60.4 % (37.0-80.0) Lymphocytes (%) (Auto) 23.0 % (10.0-50.0) Monocytes (%) (Auto) 13.6 % (0.0-12.0) Eosinophils (%) (Auto) 2.2 % (0.0-7.0) Basophils (%) (Auto) 0.8 % (0.0-2.0) Neutrophils # (Auto) 7.0 10 ^3/uL (1.6-8.6) Lymphocytes # (Auto) 2.7 10 ^3/uL (0.4-5.4) Monocytes # (Auto) 1.6 10 ^3/uL (0-1.3) Eosinophils # (Auto) 0.3 10 ^3/uL (0-0.8) Basophils # (Auto) 0.1 10 ^3/uL (0-0.2) Nucleated Red Blood Cells 0.1 % Stool Occult Blood Negative (Negative) Stool Occult Blood Sample #3 (Negative) Test 05/19/24 18:38 05/19/24 12:40 05/19/24 08:04 05/18/24 23:47 Total Bilirubin 3.2 mg/dL (0.2-1.0) Aspartate Amino Transferase (AST) 72 U/L (13-40) Alanine Aminotransferase (ALT) 55 U/L (7-40) Alkaline Phosphatase 174 U/L (46-116) Ammonia 24 umol/L (11-32) Total Protein 6.5 g/dL (5.7-8.2) Albumin 2.6 g/dL (3.2-4.8) Urine Color Dark-orange (Yellow) Urine Clarity Turbid (Clear) Urine pH 6.0 (5.0-9.0) Urine Specific [place] 1.050 (1.001-1.035) Urine Protein 2+ (Negative) Urine Ketones Trace (Negative) Urine Blood Trace /uL (Negative) Urine Nitrite Negative (Negative) Urine Bilirubin 2+ (Negative) Urine Urobilinogen 12 mg/dL (Negative) Urine Leukocyte Esterase 1+ /uL (Negative) Urine RBC 4 /hpf (0 - 4) Urine WBC 23 /hpf (0 - 5) Urine Squamous Epithelial Cells Many /hpf (<5) Urine Bacteria None seen /hpf (None Seen) Urine Mucus Few (None Seen) Urine Glucose Normal mg/dL (Normal) Urine Opiates Screen Neg (NEGATIVE) Urine Fentanyl Screen Neg (NEGATIVE) Urine Barbiturates Screen Neg (NEGATIVE) Urine Phencyclidine Screen Neg (NEGATIVE) Urine Amphetamines Screen Neg (NEGATIVE) Urine Benzodiazepines Screen Neg (NEGATIVE) Urine Cocaine Screen Neg (NEGATIVE) Urine Cannabinoids Screen Neg (NEGATIVE) POC Glucose 78 mg/dl (70-106) Troponin I High Sensitivity 4 ng/L (</=34) B-Type Natriuretic Peptide 147.37 pg/mL (0-100) Plasma/Serum Blood Alcohol < 3.0 mg/dL (<10) Test 05/18/24 16:20 05/18/24 13:24 Direct Bilirubin 2.1 mg/dL (<0.3) Prothrombin Time 20.4 sec (9.3-11.8) Prothrombin Time INR 2.03 (0.9-1.15) Activated Partial Thromboplast Time 35.4 SEC (24.5-34.5) Other Laboratory Tests 05/21/24 08:46 05/20/24 22:40 Brief Hx & Hospital Course: This is a 64-year-old female with pmhx significant for recently diagnosed liver cirrhosis ( 01/2024), hypothyroidism, and asthma. She presented to the ED yesterday with pain in the lower abdomen. According to the patient, she has been having intermittent lower abdominal but it became severe on Wednesday05/13/2024. Patient acknowledged that lower abdominal pain was progressively getting worse and she has noticed difficulties with bowel movement. The last regular bowel movement was 3 days prior to coming to the ED. Patient acknowledged difficulties with her urinary flowing with is concerning. she said her urine quantity is little compared to before. That together with the worsening lower abdominal pain, prompted the patient to come to the ED. In the ED, patient denied fever, vomiting. However she does have nausea. Patient denied dysuria, hematemesis or hematochezia. Initial vitals were normal limits. Lab work up showed: WBC OF 11.6, hemoglobin of 12 0.4-10.9, platelets 201. Chemistry revealed Na: 147, AST: 63, ALT' 46, ALP: 163. UA is positive for UTI. KUB revealed Nonobstructive bowel gas pattern. Large stool burden. Liver US showed Hepatic steatosis Gallbladder not visualized. PMHx: liver cirrhosis, hypothyroidism, asthma Pshx: gastric sleeve and duodenojejunostomy ( bariatric surgery [id number]) for weight loss. Fhx: noncontributory Social history: 35 years of alcohol abuse, history marijuana and methamphetamine use; use to work at a [employer] in [place] During hospitalization, patient initially complain of abdominal pain likely related to UTI and constipation, we will provide lactulose as well as IV antibiotics with shows significant clinical improvement. KUB did reveal large stool burden, no signs of SBO. Patient was started on Aldactone and Lasix. Patient later stated that she was undergoing right hip pain, we performed a new x-ray of the hip which demonstrated no signs of fracture, dislocation, dependence likely due to osteoarthrosis. Patient currently denies any significant chest pain, shortness of breath, abdominal pain, nausea, dizziness, cough, fevers, chills. She is currently tolerating diet. Physical examination as below: General: Awake, alert, comfortable appearing, in no acute distress. HEENT: Head is normocephalic and atraumatic. Pupils are equal, round, and reactive to light. Extraocular muscles are intact. No nasal discharge. No facial trauma. Intraoral exam shows moist mucous membranes with no tonsillar enlargement or exudate. Neck: Supple with no cervical lymphadenopathy No meningismus. No goiter. Heart: Regular rate without murmur, rub, or gallop. Lungs: Equal breath sounds bilaterally with no wheezing, rales, or rhonchi. There is no chest wall tenderness or instability. Abdomen: No external sign of injury. Bowel sounds are present. Abdomen is soft, nontender. No rebound, no guarding, no rigidity. There are no palpable masses. There is no flank pain on exam. Extremities: Strong peripheral pulses. There is no clubbing, no cyanosis, and no edema. Skin: No rash. Neurologic: Cranial nerves II-XII intact without motor, sensory, or cerebellar deficit, no asterixis. 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 She was recommended to follow her PCP within one week. Continue Aldactone 25 mg p.o. q.d., continue Lasix 20 mg p.o. q.d., we provide a refill on simethicone, levothyroxine, lactulose Counseled on lifestyle modifications, low-salt diet, low-fat diet, low-protein diet, medical compliance Patient verbalized understanding and agreed with this plan, we spent over 30 minutes explaining the plan. Code status: Full code Goal of care discussed for more than 25 minute Case and plan discussed with Dr. Werner Consults/Reason for consult GI doctor was consulted due to liver cirrhosis and alcoholic hepatitis Operations or Procedures [place] [id number] Ph: [phone] DIAGNOSTIC IMAGING Diagnostic Imaging Report : [id number] Signed PATIENT: JARETH SOTELO ACCT: [id number] UNIT: [id number] : 1960 LOC: TELE ROOM / BED: [address] [place] [address] AGE / SEX: 64 / F ADM STATUS: ADM IN SERVICE 2306 ORDERING PHYSICIAN: DONTRELL LIMA PROCEDURE(s): LIVUS - LIVER REASON: Hepatobiliary obstruction? ORDER NUMBER(s): [id number], ACCESSION NUMBER(s): [id number] INDICATION: Hepatobiliary obstruction TECHNIQUE: Multiple real-time sonographic images of the abdomen were obtained. COMPARISON: None FINDINGS: The liver is increased in echogenicity. The liver measures 16.9 cm. No intrahepatic biliary ductal dilatation is noted. Hepatopetal flow in the main portal vein. The gallbladder is not visualized. The common duct measures 0.5 cm and is unremarkable. No pericholecystic fluid is noted. Negative sonographic Staton's sign. The right kidney measures 10.7 cm. No hydronephrosis. The pancreas is not well visualized due to obscuration from bowel gas. The visualized portions of the IVC and aorta are grossly unremarkable. IMPRESSION: 1. Hepatic steatosis. 2. Gallbladder not visualized. ATED BY: TOYIN TOMLINSON MD DICTATED DATE/TIME: 05/19/24413 SIGNED BY: TOYIN TOMLINSON MD SIGNED DATE/TIME: 05/19/24413 CC: [address] [id number] Ph: [phone] DIAGNOSTIC IMAGING Diagnostic Imaging Report : [id number] Signed PATIENT: JARETH SOTELO ACCT: [id number] UNIT: [id number] : 1960 LOC: TELE ROOM / BED: [address] [place] [address] / AGE / SEX: 64 / F ADM STATUS: ADM IN SERVICE 0810 ORDERING PHYSICIAN: RORO AG,OBDULIO RESIDENT PROCEDURE(s): KUB - KUB ABDOMEN SINGLE VIEW REASON: constipation ORDER NUMBER(s): [id number], ACCESSION NUMBER(s): [id number] Date: 05/19/2024 08:27 AM Examination: XY KUB ABDOMEN SINGLE VIEW History: constipation Comparison: TECHNIQUE: Frontal views of the abdomen was obtained. FINDINGS: Bowel gas pattern is unremarkable. The lung bases are unremarkable. No acute osseous abnormality identified. IMPRESSION: Nonobstructive bowel gas pattern. Large stool burden. ATED BY: PEMA CABA MD DICTATED DATE/TIME: 05/19/24919 SIGNED BY: PEMA CABA MD SIGNED DATE/TIME: 05/19/24919 CC: [place] [id number] Ph: [phone] DIAGNOSTIC IMAGING Diagnostic Imaging Report : [id number] Signed PATIENT: JARETH SOTELO ACCT: [id number] UNIT: [id number] : 1960 LOC: [facility] ROOM / BED: [address] [place] [address] AGE / SEX: 64 / F ADM STATUS: ADM IN SERVICE 1257 ORDERING PHYSICIAN: OBDULIO BELCHER PROCEDURE(s): RHIP - R HIP COMPLETE XRAY REASON: right hip pain ORDER NUMBER(s): [id number], ACCESSION NUMBER(s): [id number] EXAM: XY R HIP COMPLETE XRAY CLINICAL HISTORY: right hip pain COMPARISON: None TECHNIQUE: XY R HIP COMPLETE XRAY Findings/Impression: 2 views of the right hip with frontal view of the pelvis. There is no evidence of an acute fracture, dislocation, blastic, or lytic lesions. Mild degenerative changes of the right hip. No radiopaque foreign bodies. No joint effusion or superficial soft tissue abnormalities. ATED BY: HOA BLACKWELL DO DICTATED DATE/TIME: 05/21/241416 SIGNED BY: HOA BLACKWELL DO SIGNED DATE/TIME: 05/21/241416 CC: Condition at Discharge: Guarded Final Diagnosis/Problems List Abdominal pain, likely due to constipation and UTI ruled out obstruction UTI Possible acute Hepatic encephalopathy Decompensated liver cirrhosis, possibly due to alcohol hepatitis Hypernatremia hypoalbuminemia Obesity Discharge Disposition: Home Discharge Instruct/Medications Diet: Cardiac 2g Na,low cholest Activity: No Restrictions, As Tolerated Follow Up/Referral: FU with PCP in 1 week Medications: continue home meds as prescribed continue aldactone and lasix refilled simethicone, levothyroxine Discharge Statement: "Patient was advised to return to the ER or call 911 if any headaches, dizziness, shortness of breath, chest pain, abdominal pain, bleeding, fevers, or worsening of medical condition. Patient was counseled about treatment plan, medications, possible side effects, patientverbalized understanding. All questions were answered to the best of my ability. 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
[2024-05-21] MEDS ORDERED: LACT10SO3 PO (14:41)
[2024-05-22] VITALS (7 sets, daily range): BP systolic 90–112; BP diastolic 51–64; PULSE 87–106; RESP 16–20; TEMP 98.3–100.2; O2SAT 94–97
[2024-05-22] MEDS: SPIRONOLACTONE 25 MG TAB PO SCH (10:30)
[2024-05-22 10:47] LABS: Hepatitis B Core Total AB Negative (Negative)
[2024-05-22 10:52] LABS: Basophils # (auto) 0.1 10 ^3/uL (0-0.2); Basophils % (auto) 0.8 % (0.0-2.0); Eosinophils # (auto) 0 10 ^3/uL (0-0.8); Eosinophils % (auto) 0.3 % (0.0-7.0); Hematocrit 34.5 % (36.0-46.0); Hemoglobin 11.6 g/dL (12.2-16.2); Lymphocytes # (auto) 1.8 10 ^3/uL (0.4-5.4); Lymphocytes % (auto) 12.8 % (10.0-50.0); Mean Corpuscular Hemoglobin 31.6 pg (28.0-32.0); Mean Corpuscular Hgb Conc. 33.6 g/dL (32.0-36.0); Mean Corpuscular Volume 93.9 fL (80.0-100.0); Monocytes # (auto) 1.7 10 ^3/uL (0-1.3); Monocytes % (auto) 12.1 % (0.0-12.0); Neutrophils # (auto) 10.1 10 ^3/uL (1.6-8.6); Nucleated Red Blood Cells % 0.1 %; Platelet Count (auto) 165 10^3/uL (140-450); Red Blood Cells 3.67 10^6/uL (4.0-5.20); Red Cell Distribution Width 15.6 % (11.8-14.3); White Blood Cell 13.7 10^3/uL (4.4-10.8)
[2024-05-22 11:11] LABS: Alanine Aminotransferase 50 U/L (7-40); Albumin 2.2 g/dL (3.2-4.8); Alkaline Phosphatase 161 U/L (46-116); Anion Gap 7 (5-15); Aspartate Aminotransferase 95 U/L (13-40); BUN/Creatinine Ratio 11.9 (10.0-20.0); Bilirubin, Total 2.6 mg/dL (0.2-1.0); Blood Urea Nitrogen 7 mg/dL (9-23); Calcium 8.1 mg/dL (8.7-10.4); Carbon Dioxide 22 mmol/L (20-31); Chloride 108 mmol/L (98-107); Glucose 102 mg/dL (74-106); Potassium 3.8 mmol/L (3.5-5.1); Sodium 137 mmol/L (136-145); Total Protein 5.9 g/dL (5.7-8.2)
[2024-05-22 11:19] LABS: Lactic Acid w/Reflex 2.3 mmol/L (0.4-2.0)
[2024-05-22 11:53] LABS: Hepatitis A Total Antibody Negative (Negative); Hepatitis B Surface Antibody Negative (Negative); Hepatitis B Surface Antigen Negative (Negative); Hepatitis C Antibody Negative (Negative)
--- NOTE | 2024-05-22 14:38 | DVH ---
XY CHEST TWO VIEWS ROUTINE, HISTORY: sob COMPARISON: None None TECHNICAL DATA: 2 view of the chest was obtained. FINDINGS: Lines and tubes: None Cardiomediastinal silhouette: normal Pulmonary vasculature: normal Lung expansion: normal Lung airspace: normal Lung interstitium: normal Pleura: normal Pneumothorax: no Bones: Unremarkable Other: no IMPRESSION: No acute intrathoracic abnormality.
--- NOTE | 2024-05-22 16:34 | DVH ---
Ultrasound abdomen limited INDICATION: ascitis, fluid check Technique: 2-D real-time ultrasound was performed with axial and sagittal images submitted for evalu ation. FINDINGS: 4 quadrant ultrasound shows minimal ascites present in the right upper quadrant, in the ri ght lower quadrant and in the left lower quadrant. No ascites seen in the left upper quadrant IMPRESSION: 1. Minimal ascites
[2024-05-22] MEDS: SODIUM CHLORIDE 0.9% 500 ML IV ONE ×2 (17:39→21:25)
[2024-05-22] MEDS: LACTULOSE 20Gm/30ML SOLN PO ONE (18:02)
--- NOTE | 2024-05-22 18:58 | DVHPNRES ---
Progress Note Date Seen: May 22, 2024 Resident Creating Document: OBDULIO BELCHER RESIDENT Has the PT tested + for MRSA If YES, has PT been informed?: No Medical Necessity Reason Pt with a Central, PICC or Fol: No Subjective Review of Systems Patient is seen and examined at the bedside. She experienced episodes of fever and coughig fits, states having general maalise, chills, no abdominal pain. Ordered lactic acid and was elevated, gave IVF and held discharge. will continue iv antibiotics. cxr and ab us were unremarkable. Objective vital signs Vital Sign Date Time Temp Pulse Resp B/P (MAP) Pulse Ox O2 Delivery O2 Flow Rate FiO2 05/22/24 16:38 98.6 87 18 90/51 (64) 97 98.6 05/22/24 08:00 Room Air* 0 21 Total Intake and Output 05/21/24 05/21/24 05/22/24 15:00 23:00 07:00 Intake Total 50 ml 460 ml 800 ml Balance 50 ml 460 ml 800 ml medications Current Medications Medications Dose Ordered Sig/Joe Route Start Time Stop Time Status Last Admin Dose Admin Ondansetron HCl 4 mg Q4HP PRN IV 05/18/24 22:00 Multivitamins 1 tab DAILY PO 05/19/24 10:00 05/22/24 10:29 1 TAB Acetaminophen 650 mg Q6HP PRN PO 05/18/24 22:00 05/22/24 04:11 650 MG Morphine Sulfate 2 mg Q4HPRN PRN IV 05/18/24 22:00 05/20/24 05:29 2 MG Nitroglycerin 0.4 mg Q5MINP PRN SL 05/18/24 22:00 Morphine Sulfate 2 mg Q30M PRN IV 05/18/24 22:00 Dimethicone 40 mg QIDP PRN PO 05/18/24 23:30 Ceftriaxone Sodium/Dextrose 50 ml @ 50 mls/hr DAILY IV 05/18/24 23:45 05/22/24 10:32 50 MLS/HR Pantoprazole Sodium 40 mg DAILY IV 05/19/24 10:00 05/22/24 10:29 40 MG Acetaminophen/ Hydrocodone Bitart 1 tab Q6HP PRN PO 05/20/24 17:45 05/22/24 05:35 1 TAB Furosemide 20 mg DAILY PO 05/21/24 10:00 05/22/24 10:31 20 MG Patient Own Medication 1 DAILY PO 05/21/24 10:00 Spironolactone 25 mg DAILY PO 05/22/24 10:00 05/22/24 10:30 25 MG Lactulose 30 ml BID PO 05/22/24 22:00 Examination General: Awake, alert, comfortable appearing, in no acute distress. HEENT: Head is normocephalic and atraumatic. Pupils are equal, round, and reactive to light. Extraocular muscles are intact. No nasal discharge. No facial trauma. Intraoral exam shows moist mucous membranes with no tonsillar enlargement or exudate. Neck: Supple with no cervical lymphadenopathy No meningismus. No goiter. Heart: Regular rate without murmur, rub, or gallop. Lungs: Equal breath sounds bilaterally with no wheezing, rales, or rhonchi. There is no chest wall tenderness or instability. Abdomen: No external sign of injury. Bowel sounds are present. Abdomen is soft, nontender. No rebound, no guarding, no rigidity. There are no palpable masses. There is no flank pain on exam. Extremities: Strong peripheral pulses. There is no clubbing, no cyanosis, and no edema. Skin: No rash. Neurologic: Cranial nerves II-XII intact without motor, sensory, or cerebellar deficit, no asterixis. laboratory and microbiology Laboratory Tests 05/22/24 10:33 Test 05/22/24 10:33 Range/Units Serum Glucose 102 74-106 mg/dL Microbiology Date/Time Source Procedure Growth Status 05/19/24 12:40 Voided Urine Urine Culture - Final Complete 05/18/24 23:47 Blood Blood Culture - Preliminary NO GROWTH AFTER 72 HOURS OF INCUBATION. Resulted Labs and/or images reviewed: Labs reviewed by me, Image(s) reviewed by me Problem List/Assessment/Plan Problem List/Assessment/Plan Abdominal pain secondary to constipation--> resolved after enema --> History of bariactic surgery, obstruction ruled out --> kub: Nonobstructive bowel gas pattern. Large stool burden Abdominal US, no ascitis Sepsis, possibly due to UTI -->UA positive --> wbc: 11.6 -->Ceftriaxone ordered another blood culture and urine culture Possible acute Hepatic encephalopathy --> Ammonia: 48 H --> recently liver cirrhosis --> On lactulose --> Furosemide and Spirinolactone: to continue home medication Hypernatremia -->monitor electrolyte hypoalbuminemia albumin: 2.2 Generalized joint pains --> PT evaluation Obesity bmi 33.1 COVID and influenza negative cxr unremarkable Code status: Full code Goal of care discussed for more than 20 minutes Case and plan discussed with Dr. Werner Plan discussed with: Patient, Other (RN) My Orders My Orders Orders - OBDULIO BELCHER RESIDENT Procedure Category Date Status Time Spironolactone PHA 05/22/24 In Process (Aldactone) 10:00 Blood Culture KENDRA 05/22/24 In Process 08:27 Urine Bacterial KENDRA 05/22/24 Logged Culture 08:27 Chest Two Views XY 05/22/24 Resulted Routine 13:08 Abdomen Limited US 05/22/24 Resulted 15:35 Lactic Acid W/ Reflex LAB 05/22/24 Logged Order 17:05 Complete Blood Count LAB 05/23/24 Verified 04:00 Comprehensive LAB 05/23/24 Verified Metabolic Panel 04:00 Magnesium LAB 05/23/24 Verified 04:00 Lactulose Oral PHA 05/22/24 In Process 22:00 Date of Service: May 22, 2024 Billing Provider: SUSANA GARY MD Common Visit Codes: [id number] INP/OBS CARE(HIGH) OBDULIO BELCHER RESIDENT May 22, 2024 18:58 SUSANA GARY MD May 29, 2024 00:23
[2024-05-22 20:07] LABS: Lactic Acid w/Reflex 2.5 mmol/L (0.4-2.0)
[2024-05-22] MEDS: LACTULOSE 20Gm/30ML SOLN PO SCH (23:24)
[2024-05-23] VITALS (8 sets, daily range): BP systolic 96–111; BP diastolic 45–67; PULSE 62–106; RESP 16–20; TEMP 98.1–99.3; O2SAT 91–97
[2024-05-23] MEDS: LACTATED RINGER'S 250 ML IV ONE (01:45)
[2024-05-23 09:48] LABS: Basophils # (auto) 0.1 10 ^3/uL (0-0.2); Basophils % (auto) 1.2 % (0.0-2.0); Eosinophils # (auto) 0.2 10 ^3/uL (0-0.8); Eosinophils % (auto) 1.7 % (0.0-7.0); Hematocrit 29.4 % (36.0-46.0); Hemoglobin 10.1 g/dL (12.2-16.2); Lymphocytes # (auto) 2.4 10 ^3/uL (0.4-5.4); Lymphocytes % (auto) 21.4 % (10.0-50.0); Mean Corpuscular Hemoglobin 32.2 pg (28.0-32.0); Mean Corpuscular Hgb Conc. 34.4 g/dL (32.0-36.0); Mean Corpuscular Volume 93.7 fL (80.0-100.0); Monocytes # (auto) 1.7 10 ^3/uL (0-1.3); Monocytes % (auto) 15.4 % (0.0-12.0); Neutrophils # (auto) 6.7 10 ^3/uL (1.6-8.6); Neutrophils % (auto) 60.3 % (37.0-80.0); Nucleated Red Blood Cells % 0.2 %; Platelet Count (auto) 123 10^3/uL (140-450); Red Blood Cells 3.14 10^6/uL (4.0-5.20)
[2024-05-23 10:10] LABS: Alanine Aminotransferase 45 U/L (7-40); Albumin 1.9 g/dL (3.2-4.8); Alkaline Phosphatase 140 U/L (46-116); Anion Gap 9 (5-15); Aspartate Aminotransferase 85 U/L (13-40); BUN/Creatinine Ratio 11.1 (10.0-20.0); Blood Urea Nitrogen 6 mg/dL (9-23); Calcium 7.7 mg/dL (8.7-10.4); Carbon Dioxide 22 mmol/L (20-31); Chloride 110 mmol/L (98-107); Glucose 102 mg/dL (74-106); Magnesium 1.8 mg/dL (1.6-2.6); Potassium 3.4 mmol/L (3.5-5.1); Sodium 141 mmol/L (136-145)
[2024-05-23 10:11] LABS: Bilirubin, Total 1.9 mg/dL (0.2-1.0)
[2024-05-23 10:21] LABS: Lactic Acid w/Reflex 3.5 mmol/L (0.4-2.0)
[2024-05-23] MEDS ORDERED: VANCOMYCIN PER PHARMACY 0 MG IV SCH (11:15)
[2024-05-23] MEDS: SODIUM CHLORIDE 0.9% 500 ML IV ONE (12:15)
[2024-05-23] MEDS: VANCOMYCIN 1.5GM/300ML 300 ML IV ONE (13:13)
[2024-05-23] MEDS: metroNIDAZOLE 500MG/100ML 100 ML IV SCH (13:28)
[2024-05-23] MEDS: POTASSIUM CHL 20 Meq TABLET PO ONE (14:38)
[2024-05-23] MEDS: CEFEPIME 1GM/ 50ML 50 ML IV SCH (14:39)
[2024-05-23] MEDS: ALBUMIN 25% 100 ML IV ONE (16:36)
[2024-05-23] MEDS: OCTREOTIDE ACETATE 500 MCG in SODIUM CHL 0.9% 99 ML IV SCH (17:40)
[2024-05-23] MEDS: guaiFENesin-DM 100/10mg/5ml SYR PO PRN (17:40)
--- NOTE | 2024-05-23 20:07 | DVHPNRES ---
Progress Note Date Seen: May 23, 2024 Resident Creating Document: MARICARMEN GOSS RESIDENT Has the PT tested + for MRSA If YES, has PT been informed?: No Medical Necessity Reason Pt with a Central, PICC or Fol: No Medical Necessity Reason elevated lactic acid Subjective Review of Systems This is a 64-year-old with a medical history of liver cirrhosis who presented with abdominal pain secondary to constipation and UTI. Patient has received lactulose, had good bowel movement and currently has no new complaint. He is currently kept on admission because of persistent elevated lactic acid. Lactic acid measurement today is2.5--> 3.0--> 4 with elevated WBC of 11. However patient does not seem to be septic no if no evidence of infection. Constitutional: Denies fever no chills no feeling of malaise HEENT: Denies headache, ear pain, ear discharges, conjunctivitis, nasal discharge throat pain Cardiovascular: Denies chest pain, palpitation, orthopnea, PND, or pedal edema Respiratory: Denies shortness of breath, cough cough, sputum production, hemoptysis, GI: Denies abdominal pain, nausea, vomiting, diarrhea, hematemesis, hematochezia, : Denies frequency, urgency, hematuria, Endocrine: Denies unintentional weight gain or weight loss, feeling of hot flashes, Arjun: Denies easy bruising, bleeding disorders, epistaxis Musculoskeletal: Denies joint pains, muscle aches Psych: No evidence of depression, kerri, suicidal ideation Objective vital signs Vital Sign Date Time Temp Pulse Resp B/P (MAP) Pulse Ox O2 Delivery O2 Flow Rate FiO2 05/23/24 17:00 98.3 90 16 110/67 (81) 97 98.3 05/23/24 08:15 Room Air* 0 21 Total Intake and Output 05/22/24 05/22/24 05/23/24 15:00 23:00 07:00 Intake Total 50 ml 1350 ml 475 ml Balance 50 ml 1350 ml 475 ml medications Current Medications Medications Dose Ordered Sig/Joe Route Start Time Stop Time Status Last Admin Dose Admin Ondansetron HCl 4 mg Q4HP PRN IV 05/18/24 22:00 Multivitamins 1 tab DAILY PO 05/19/24 10:00 05/23/24 10:01 1 TAB Acetaminophen 650 mg Q6HP PRN PO 05/18/24 22:00 05/23/24 01:37 650 MG Morphine Sulfate 2 mg Q4HPRN PRN IV 05/18/24 22:00 05/23/24 09:59 2 MG Nitroglycerin 0.4 mg Q5MINP PRN SL 05/18/24 22:00 Morphine Sulfate 2 mg Q30M PRN IV 05/18/24 22:00 Dimethicone 40 mg QIDP PRN PO 05/18/24 23:30 Pantoprazole Sodium 40 mg DAILY IV 05/19/24 10:00 05/23/24 09:53 40 MG Acetaminophen/ Hydrocodone Bitart 1 tab Q6HP PRN PO 05/20/24 17:45 05/22/24 05:35 1 TAB Furosemide 20 mg DAILY PO 05/21/24 10:00 05/23/24 10:02 20 MG Patient Own Medication 1 DAILY PO 05/21/24 10:00 Spironolactone 25 mg DAILY PO 05/22/24 10:00 05/23/24 10:27 25 MG Lactulose 30 ml BID PO 05/22/24 22:00 05/23/24 09:53 30 ML Cefepime HCl 50 ml @ 12.5 mls/hr Q8HR IV 05/23/24 14:00 05/23/24 14:39 12.5 MLS/HR Metronidazole 100 ml @ 100 mls/hr Q8HR IV 05/23/24 14:00 05/23/24 13:28 100 MLS/HR Vancomycin HCl 0 ml @ 0 mls/hr UD IV 05/23/24 11:15 Octreotide Acetate 500 mcg/ Sodium Chloride 100 ml @ 5 mls/hr Q20H IV 05/23/24 15:00 05/23/24 17:40 5 MLS/HR Guaifenesin/ Dextromethorphan 10 ml Q4HP PRN PO 05/23/24 16:45 05/23/24 17:40 10 ML Vancomycin HCl 200 ml @ 200 mls/hr Q14H IV 05/24/24 03:00 Examination General examination- Not in acute distress HEENT: PEERLA, no acute nasal discharge Chest: S1-S2 audible, rate and rhythm regular, no murmur Lung: CTAB, no wheeze or rhonchi Abdomen: Nondistend, BS+, nontenderness, no organomegaly Musculoskeletal: no acute joint swelling or tenderness Lower extremity: no leg edema Neurological: cranial nerves intact, no acute dysarthria or dysphagia Psychiatry--> Normal mood and affect Skin- no acute rash or purpura laboratory and microbiology Laboratory Tests 05/23/24 09:25 Test 05/23/24 09:25 Range/Units Serum Glucose 102 74-106 mg/dL Microbiology Date/Time Source Procedure Growth Status 05/22/24 10:33 Blood Blood Culture - Preliminary NO GROWTH AFTER 24 HOURS OF INCUBATION. Resulted 05/19/24 12:40 Voided Urine Urine Culture - Final Complete Problem List/Assessment/Plan Problem List/Assessment/Plan Abdominal pain secondary to constipation--> resolved after enema --> History of bariactic surgery, obstruction ruled out --> kub: Nonobstructive bowel gas pattern. Large stool burden ->For possible discharge tomorrow 05/21/2024 with bowel regimen ( lactulose, docusate or Senna) UTI -->UA positive --> wbc: 11.6 -->Ceftriaxone Possible acute Hepatic encephalopathy --> Ammonia: 48 H -->Liver cirrhosis --> on Lactulose ran out couple of days prior to coming to the ED --> On lactulose --> Furosemide and Spirinolactone: to continue home medication Persistent lactic acidosis in the setting of liver cirrhosis -->add octreotide 25mcg --> Albumin: 25mg Hypokalemia --> replaced Hypernatremia -->monitor electrolyte hypoalbuminemia albumin: 2.2-->.1.9 Generalized joint pains --> PT evaluation Obesity bmi 33.1 Will address healthy lifestyle changes prior to discharge COVID and influenza negative Code status: Full code Goal of care discussed for more than 25 minute Case and plan discussed with Dr. Werner Plan discussed with: Patient My Orders My Orders Orders - MARICARMEN GOSS RESIDENT Procedure Category Date Status Time Complete Blood Count LAB 05/24/24 Verified 04:00 Comprehensive LAB 05/24/24 Verified Metabolic Panel 04:00 Sodium Chl 0.9% PHA 05/23/24 In Process (So... W/Octreotide 15:00 Lactic Acid W/ Reflex LAB 05/24/24 Verified Order 04:00 Dietary Evaluation Review Comments: 1) Consider Prostat 1 pkt BID 2) Continue current plan of care Expected Outcomes/Goals: F/U in 3-5 days Date of Service: May 23, 2024 Billing Provider: SUSANA GARY MD Common Visit Codes: [id number] INP/OBS CARE(HIGH) MARICARMEN GOSS RESIDENT May 23, 2024 20:07 SUSANA GARY MD May 29, 2024 00:15
[2024-05-24] VITALS (9 sets, daily range): BP systolic 91–119; BP diastolic 47–69; PULSE 67–102; RESP 17–20; TEMP 98.4–99.4; O2SAT 93–96
[2024-05-24] MEDS: VANCOMYCIN HCL 1000 MG VL ONE (02:33)
[2024-05-24] MEDS: VANCOMYCIN 1GM/200ML PREMIX 200 ML IV SCH (03:26)
[2024-05-24 05:01] LABS: Basophils # (auto) 0.1 10 ^3/uL (0-0.2); Basophils % (auto) 0.6 % (0.0-2.0); Eosinophils # (auto) 0.1 10 ^3/uL (0-0.8); Eosinophils % (auto) 1.1 % (0.0-7.0); Hematocrit 28.8 % (36.0-46.0); Hemoglobin 10.1 g/dL (12.2-16.2); Lymphocytes # (auto) 2.3 10 ^3/uL (0.4-5.4); Lymphocytes % (auto) 20.8 % (10.0-50.0); Mean Corpuscular Hemoglobin 32.7 pg (28.0-32.0); Mean Corpuscular Hgb Conc. 34.9 g/dL (32.0-36.0); Mean Corpuscular Volume 93.7 fL (80.0-100.0); Monocytes # (auto) 1.4 10 ^3/uL (0-1.3); Neutrophils % (auto) 64.5 % (37.0-80.0); Nucleated Red Blood Cells % 0.2 %; Platelet Count (auto) 120 10^3/uL (140-450); Red Blood Cells 3.08 10^6/uL (4.0-5.20); Red Cell Distribution Width 15.7 % (11.8-14.3); White Blood Cell 10.9 10^3/uL (4.4-10.8)
[2024-05-24 05:25] LABS: Alanine Aminotransferase 41 U/L (7-40); Albumin 2.1 g/dL (3.2-4.8); Alkaline Phosphatase 139 U/L (46-116); Anion Gap 6 (5-15); Aspartate Aminotransferase 88 U/L (13-40); Carbon Dioxide 24 mmol/L (20-31); Chloride 109 mmol/L (98-107); Glucose 151 mg/dL (74-106); Potassium 3.9 mmol/L (3.5-5.1); Sodium 139 mmol/L (136-145)
[2024-05-24 05:26] LABS: Bilirubin, Total 1.8 mg/dL (0.2-1.0)
[2024-05-24 05:47] LABS: BUN/Creatinine Ratio 10.2 (10.0-20.0); Blood Urea Nitrogen < 5 mg/dL (9-23)
--- NOTE | 2024-05-24 11:16 | DVHPNRES ---
Progress Note Date Seen: May 24, 2024 Resident Creating Document: MARICARMEN GOSS RESIDENT Has the PT tested + for MRSA If YES, has PT been informed?: No Medical Necessity Reason Pt with a Central, PICC or Fol: No Medical Necessity Reason left elbow pain, lactic acid improving Subjective Review of Systems This is a 64-year-old with a medical history of liver cirrhosis who presented with abdominal pain secondary to constipation and UTI. Patient has received lactulose, had good bowel movement and currently has no new complaint. Patient is seen and examined today. She is doing better; however, she complained of left elbow pain. Otherwise, her vitals are stable, blood work today is improved. Lactic acid is now within normal limits after receiving octreotide and albumin. She is eating well and eat all her breakfast at the time of my visit. Constitutional: Denies fever no chills no feeling of malaise HEENT: Denies headache, ear pain, ear discharges, conjunctivitis, nasal discharge throat pain Cardiovascular: Denies chest pain, palpitation, orthopnea, PND, or pedal edema Respiratory: Denies shortness of breath, cough cough, sputum production, hemoptysis, GI: Denies abdominal pain, nausea, vomiting, diarrhea, hematemesis, hematochezia, : Denies frequency, urgency, hematuria, Endocrine: Denies unintentional weight gain or weight loss, feeling of hot flashes, Arjun: Denies easy bruising, bleeding disorders, epistaxis Musculoskeletal: left elbow pain, Psych: No evidence of depression, kerri, suicidal ideatio Objective vital signs Vital Sign Date Time Temp Pulse Resp B/P (MAP) Pulse Ox O2 Delivery O2 Flow Rate FiO2 05/24/24 09:42 92 18 110/46 05/24/24 09:00 98.5 96 98.5 05/23/24 20:00 Room Air* 0 21 Total Intake and Output 05/23/24 05/23/24 05/24/24 15:00 23:00 07:00 Intake Total 900 ml 900 ml 350 ml Balance 900 ml 900 ml 350 ml medications Current Medications Medications Dose Ordered Sig/Joe Route Start Time Stop Time Status Last Admin Dose Admin Ondansetron HCl 4 mg Q4HP PRN IV 05/18/24 22:00 Multivitamins 1 tab DAILY PO 05/19/24 10:00 05/24/24 09:32 1 TAB Acetaminophen 650 mg Q6HP PRN PO 05/18/24 22:00 05/23/24 01:37 650 MG Morphine Sulfate 2 mg Q4HPRN PRN IV 05/18/24 22:00 05/24/24 09:42 2 MG Nitroglycerin 0.4 mg Q5MINP PRN SL 05/18/24 22:00 Morphine Sulfate 2 mg Q30M PRN IV 05/18/24 22:00 Dimethicone 40 mg QIDP PRN PO 05/18/24 23:30 Pantoprazole Sodium 40 mg DAILY IV 05/19/24 10:00 05/24/24 09:43 40 MG Acetaminophen/ Hydrocodone Bitart 1 tab Q6HP PRN PO 05/20/24 17:45 05/22/24 05:35 1 TAB Furosemide 20 mg DAILY PO 05/21/24 10:00 05/24/24 09:32 20 MG Patient Own Medication 1 DAILY PO 05/21/24 10:00 Spironolactone 25 mg DAILY PO 05/22/24 10:00 05/24/24 09:32 25 MG Lactulose 30 ml BID PO 05/22/24 22:00 05/24/24 09:32 30 ML Cefepime HCl 50 ml @ 12.5 mls/hr Q8HR IV 05/23/24 14:00 05/24/24 06:45 12.5 MLS/HR Metronidazole 100 ml @ 100 mls/hr Q8HR IV 05/23/24 14:00 05/24/24 05:39 100 MLS/HR Vancomycin HCl 0 ml @ 0 mls/hr UD IV 05/23/24 11:15 Octreotide Acetate 500 mcg/ Sodium Chloride 100 ml @ 5 mls/hr Q20H IV 05/23/24 15:00 05/24/24 08:23 5 MLS/HR Guaifenesin/ Dextromethorphan 10 ml Q4HP PRN PO 05/23/24 16:45 05/23/24 17:40 10 ML Vancomycin HCl 200 ml @ 200 mls/hr Q14H IV 05/24/24 03:00 05/24/24 03:26 200 MLS/HR Examination General examination- Not in acute distress, lying in bed HEENT: PEERLA, no acute nasal discharge Chest: S1-S2 audible, rate and rhythm regular, no murmur Lung: CTAB, no wheeze or rhonchi Abdomen: Nondistend, BS+, nontenderness, no organomegaly Musculoskeletal: no acute joint swelling or tenderness extremity: no leg edema, left elbow tenderness Neurological: cranial nerves intact, no acute dysarthria or dysphagia Psychiatry--> Normal mood and affect Skin- no acute rash or purpura laboratory and microbiology Laboratory Tests 05/24/24 04:24 Test 05/24/24 04:24 Range/Units Serum Glucose 151 H 74-106 mg/dL Microbiology Date/Time Source Procedure Growth Status 05/22/24 10:33 Blood Blood Culture - Preliminary NO GROWTH AFTER 48 HOURS OF INCUBATION. Resulted 05/19/24 12:40 Voided Urine Urine Culture - Final Complete Problem List/Assessment/Plan Problem List/Assessment/Plan Abdominal pain secondary to constipation--> resolved after enema --> History of bariactic surgery, obstruction ruled out --> kub: Nonobstructive bowel gas pattern. Large stool burden ->For possible discharge tomorrow 05/21/2024 with bowel regimen ( lactulose, docusate or Senna) UTI -->UA positive --> leukocytosis trending down Possible acute Hepatic encephalopathy --> Ammonia: 48 H -->Liver cirrhosis --> on Lactulose ran out couple of days prior to coming to the ED -->Continue lactulose --> Furosemide and Spironolactone: to continue home medication lactic acidosis improved after initial octreotide and albumin --> Lactic acid : 1.6 --> tape octreotide 10 mcg ( today) --> once Albumin: 25mg --> de-escalate antibiotics: Azithromycin and Ceftriaxone Hypokalemia--improved --> K : 3.9 Hypernatremia--> Improved Na: 139 hypoalbuminemia albumin: 2.2-->.1.9 Generalized joint pains --> PT evaluation --> X-ray left elbow; No acute fracture or dislocation. Obesity bmi 33.1 Will address healthy lifestyle changes prior to discharge COVID and influenza negative Code status: Full code Goal of care discussed for more than 20 minutes Case and plan discussed with Dr. Werner Plan discussed with: Patient My Orders My Orders Orders - MARICARMEN GOSS RESIDENT Procedure Category Date Status Time Sodium Chl 0.9% PHA 05/23/24 In Process (So... W/Octreotide 15:00 L Elbow 2 View Xray XY 05/24/24 Verified 11:05 Dietary Evaluation Review Comments: 1) Consider Prostat 1 pkt BID 2) Continue current plan of care Expected Outcomes/Goals: F/U in 3-5 days Date of Service: May 24, 2024 Billing Provider: SUSANA GARY MD Common Visit Codes: [id number] INP/OBS CARE(HIGH) MARICARMEN GOSS RESIDENT May 24, 2024 11:16 SUSANA GARY MD May 29, 2024 00:07
--- NOTE | 2024-05-24 13:01 | DVH ---
PROCEDURE: Left elbow radiographs. INDICATION: left elbow pain TECHNIQUE: 2 views of the left elbow were obtained. COMPARISON: None FINDINGS: There is increased sclerosis in the distal humerus which may reflect old fracture. There is no evidence of acute fracture or dislocation. Joint spaces are maintained. The soft tissues are unr emarkable. IMPRESSION: 1. No acute fracture or dislocation.
[2024-05-24] MEDS: AZITHROMYCIN 500MG/ 250ML 250 ML IV ONE (17:47)
[2024-05-25] VITALS (7 sets, daily range): BP systolic 98–118; BP diastolic 55–97; PULSE 68–86; RESP 17–19; TEMP 98.2–99; O2SAT 93–97
[2024-05-25 06:20] LABS: Basophils # (auto) 0.1 10 ^3/uL (0-0.2); Basophils % (auto) 0.8 % (0.0-2.0); Eosinophils # (auto) 0.2 10 ^3/uL (0-0.8); Eosinophils % (auto) 1.9 % (0.0-7.0); Lymphocytes # (auto) 3.1 10 ^3/uL (0.4-5.4); Lymphocytes % (auto) 28.4 % (10.0-50.0); Mean Corpuscular Hemoglobin 32.7 pg (28.0-32.0); Mean Corpuscular Hgb Conc. 34.5 g/dL (32.0-36.0); Mean Corpuscular Volume 94.7 fL (80.0-100.0); Monocytes # (auto) 1.4 10 ^3/uL (0-1.3); Monocytes % (auto) 12.7 % (0.0-12.0); Neutrophils # (auto) 6.1 10 ^3/uL (1.6-8.6); Neutrophils % (auto) 56.2 % (37.0-80.0); Nucleated Red Blood Cells % 0.3 %; Platelet Count (auto) 111 10^3/uL (140-450); Red Blood Cells 3.06 10^6/uL (4.0-5.20); Red Cell Distribution Width 16.1 % (11.8-14.3); White Blood Cell 10.9 10^3/uL (4.4-10.8)
[2024-05-25 06:48] LABS: Alanine Aminotransferase 39 U/L (7-40); Anion Gap 9 (5-15); Carbon Dioxide 24 mmol/L (20-31); Potassium 3.5 mmol/L (3.5-5.1); Sodium 141 mmol/L (136-145)
[2024-05-25 06:51] LABS: Alkaline Phosphatase 148 U/L (46-116); Aspartate Aminotransferase 83 U/L (13-40); BUN/Creatinine Ratio 13.2 (10.0-20.0); Bilirubin, Total 1.9 mg/dL (0.2-1.0); Blood Urea Nitrogen < 5 mg/dL (9-23); Calcium 7.6 mg/dL (8.7-10.4); Chloride 108 mmol/L (98-107); Glucose 114 mg/dL (74-106); Total Protein 4.8 g/dL (5.7-8.2)
[2024-05-25 07:38] LABS: Lactic Acid w/Reflex 2.3 mmol/L (0.4-2.0)
[2024-05-25] MEDS: ALBUMIN 25% 100 ML IV ONE (08:45)
[2024-05-25] MEDS: cefTRIAXone 1GM/50ML D5W 50 ML IV SCH (09:32)
[2024-05-25] MEDS: AZITHROMYCIN 500MG/ 250ML 250 ML IV SCH (10:29)
[2024-05-25] MEDS ORDERED: AZIT-185 PO (14:09)
[2024-05-25] MEDS ORDERED: CEFP200T15 PO (14:09)
--- NOTE | 2024-05-25 22:41 | DVHDSRES ---
Discharge Summary Date of Admission Resident Creating Document: MARICARMEN GOSS RESIDENT May 18, 2024 at 21:50 Date of Discharge: May 26, 2024 Admitting Diagnosis Abdominal pain Labs/Diagnostic Data: Laboratory Results Test 05/25/24 05:24 05/23/24 09:25 05/21/24 02:00 05/20/24 21:48 White Blood Count 10.9 10^3/uL (4.4-10.8) Red Blood Count 3.06 10^6/uL (4.0-5.20) Hemoglobin 10.0 g/dL (12.2-16.2) Hematocrit 29.0 % (36.0-46.0) Mean Corpuscular Volume 94.7 fL (80.0-100.0) Mean Corpuscular Hemoglobin 32.7 pg (28.0-32.0) Mean Corpuscular Hemoglobin Concent 34.5 g/dL (32.0-36.0) Red Cell Distribution Width 16.1 % (11.8-14.3) Platelet Count 111 10^3/uL (140-450) Mean Platelet Volume 8.4 fL (6.9-10.8) Neutrophils (%) (Auto) 56.2 % (37.0-80.0) Lymphocytes (%) (Auto) 28.4 % (10.0-50.0) Monocytes (%) (Auto) 12.7 % (0.0-12.0) Eosinophils (%) (Auto) 1.9 % (0.0-7.0) Basophils (%) (Auto) 0.8 % (0.0-2.0) Neutrophils # (Auto) 6.1 10 ^3/uL (1.6-8.6) Lymphocytes # (Auto) 3.1 10 ^3/uL (0.4-5.4) Monocytes # (Auto) 1.4 10 ^3/uL (0-1.3) Eosinophils # (Auto) 0.2 10 ^3/uL (0-0.8) Basophils # (Auto) 0.1 10 ^3/uL (0-0.2) Nucleated Red Blood Cells 0.3 % Sodium Level 141 mmol/L (136-145) Potassium Level 3.5 mmol/L (3.5-5.1) Chloride Level 108 mmol/L (98-107) Carbon Dioxide Level 24 mmol/L (20-31) Anion Gap 9 (5-15) Blood Urea Nitrogen < 5 mg/dL (9-23) Creatinine 0.38 mg/dL (0.550-1.02) Glomerular Filtration Rate Calc 113 mL/min (>90) BUN/Creatinine Ratio 13.2 (10.0-20.0) Serum Glucose 114 mg/dL (74-106) Lactic Acid Level 2.3 mmol/L (0.4-2.0) Calcium Level 7.6 mg/dL (8.7-10.4) Total Bilirubin 1.9 mg/dL (0.2-1.0) Aspartate Amino Transferase (AST) 83 U/L (13-40) Alanine Aminotransferase (ALT) 39 U/L (7-40) Alkaline Phosphatase 148 U/L (46-116) Total Protein 4.8 g/dL (5.7-8.2) Albumin 2.0 g/dL (3.2-4.8) Vancomycin Level Trough 4.8 ug/mL (5-10) Magnesium Level 1.8 mg/dL (1.6-2.6) Influenza Type A Antigen Negative (Negative) Influenza Type B Antigen Negative (Negative) SARS-CoV-2 Antigen (Rapid) Negative (NEGATIVE) Stool Occult Blood Negative (Negative) Stool Occult Blood Sample #3 (Negative) Test 05/19/24 18:38 05/19/24 12:40 05/19/24 08:04 05/18/24 23:47 Ammonia 24 umol/L (11-32) Urine Color Dark-orange (Yellow) Urine Clarity Turbid (Clear) Urine pH 6.0 (5.0-9.0) Urine Specific [place] 1.050 (1.001-1.035) Urine Protein 2+ (Negative) Urine Ketones Trace (Negative) Urine Blood Trace /uL (Negative) Urine Nitrite Negative (Negative) Urine Bilirubin 2+ (Negative) Urine Urobilinogen 12 mg/dL (Negative) Urine Leukocyte Esterase 1+ /uL (Negative) Urine RBC 4 /hpf (0 - 4) Urine WBC 23 /hpf (0 - 5) Urine Squamous Epithelial Cells Many /hpf (<5) Urine Bacteria None seen /hpf (None Seen) Urine Mucus Few (None Seen) Urine Glucose Normal mg/dL (Normal) Urine Opiates Screen Neg (NEGATIVE) Urine Fentanyl Screen Neg (NEGATIVE) Urine Barbiturates Screen Neg (NEGATIVE) Urine Phencyclidine Screen Neg (NEGATIVE) Urine Amphetamines Screen Neg (NEGATIVE) Urine Benzodiazepines Screen Neg (NEGATIVE) Urine Cocaine Screen Neg (NEGATIVE) Urine Cannabinoids Screen Neg (NEGATIVE) POC Glucose 78 mg/dl (70-106) Troponin I High Sensitivity 4 ng/L (</=34) B-Type Natriuretic Peptide 147.37 pg/mL (0-100) Plasma/Serum Blood Alcohol < 3.0 mg/dL (<10) Hepatitis A Antibody Total Negative (Negative) Hepatitis B Surface Antigen Negative (Negative) Hepatitis B Surface Antibody Negative (Negative) Hepatitis B Core Total Antibody Negative (Negative) Hepatitis C Antibody Negative (Negative) Test 05/18/24 16:20 05/18/24 13:24 Direct Bilirubin 2.1 mg/dL (<0.3) Prothrombin Time 20.4 sec (9.3-11.8) Prothrombin Time INR 2.03 (0.9-1.15) Activated Partial Thromboplast Time 35.4 SEC (24.5-34.5) Other Laboratory Tests 05/25/24 05:24 Brief Hx & Hospital Course: This 64-year-old female with past medical history significant for recently diagnosed liver cirrhosis ( 01/2024, [place]), hypothyroidism, asthma and bariatric surgery [id number] presented to the ED on 05/19/2024 with abdominal pain. According to the patient, she has been having intermittent lower abdominal that became severe on 05/13/2024. Pain was non-radiating and was associated with difficulties with bowel moment. Her regular bowel movement was 3 days prior to presentation to the ED. She had flatus. Stool was on normal color and consistency. Patient also acknowledged difficulties with urinary flow. She said it is slower than before. Of note, since her cirrhosis diagnosis, patient has been taking lactulose, furosemide, and spironolactone. She ran out of lactulose 2 weeks prior to presenting to the ED. At [facility], patient was found to have UTI, which was managed with antibiotics, and enema for her constipation. Lactulose resumed and patient passed stools 4x improving her abdominal pain. While on admission, her lactic acid level kept going up from 2.3--> 3-->3.5-->4.0 without any source of infection. We gave patient Octreotide and albumin and that improved the lactic acid level to the normal limit. Patient then complained of hip pain. X-ray of the hip was negative. The next day, she complained of the left elbow. X-ray was again negative. Physical therapy was consult and patient was also encouraged to be mobile as much as she can. Examination on May 25, 2024: General examination- Not in acute distress, lying in bed HEENT: PEERLA, no acute nasal discharge, Tongue was beefy red Chest: S1-S2 audible, rate and rhythm regular, no murmur Lung: CTAB, no wheeze or rhonchi Abdomen: Nondistended, BS+, nontender, no organomegaly Musculoskeletal: no acute joint swelling or tenderness extremity: no leg edema, left elbow tenderness--> (NO fractures or dislocation noted on X-ray) Neurological: cranial nerves intact, no acute dysarthria or dysphagia Psychiatry--> Normal mood and affect Skin- no acute rash or purpura From medical standpoint, patient is stable for discharge. She is scheduled for follow up in 7 days at the discharge clinic. Also, patient advised to make an appointment to see the GI or the roofing layer regarding her cirrhosis. We strongly advised the patient against alcohol abuse given her current liver condition; counseled on alcohol use cessation for 18 minutes.. Goals of care discussion for 20 minutes; full code. Case discussed with Dr. Moser Consults/Reason for consult GI for liver cirrhosis Operations or Procedures ORDERING PHYSICIAN: DONTRELL LIMA RESIDENT PROCEDURE(s): LIVUS - LIVER REASON: Hepatobiliary obstruction? ORDER NUMBER(s): [id number], ACCESSION NUMBER(s): [id number] INDICATION: Hepatobiliary obstruction TECHNIQUE: Multiple real-time sonographic images of the abdomen were obtained. COMPARISON: None FINDINGS: The liver is increased in echogenicity. The liver measures 16.9 cm. No intrahepatic biliary ductal dilatation is noted. Hepatopetal flow in the main portal vein. The gallbladder is not visualized. The common duct measures 0.5 cm and is unremarkable. No pericholecystic fluid is noted. Negative sonographic Staton's sign. The right kidney measures 10.7 cm. No hydronephrosis. The pancreas is not well visualized due to obscuration from bowel gas. The visualized portions of the IVC and aorta are grossly unremarkable. IMPRESSION: 1. Hepatic steatosis. 2. Gallbladder not visualized. ATED BY: GERTRUDE TOMLINSON MD DICTATED DATE/TIME: 05/19/24 0414 ORDERING PHYSICIAN: OBDULIO BELCHER PROCEDURE(s): KUB - KUB ABDOMEN SINGLE VIEW REASON: constipation ORDER NUMBER(s): [id number], ACCESSION NUMBER(s): [id number] Date: 05/19/2024 08:27 AM Examination: XY KUB ABDOMEN SINGLE VIEW History: constipation Comparison: TECHNIQUE: Frontal views of the abdomen was obtained. FINDINGS: Bowel gas pattern is unremarkable. The lung bases are unremarkable. No acute osseous abnormality identified. IMPRESSION: Nonobstructive bowel gas pattern. Large stool burden. ATED BY: PEMA CABA MD DICTATED DATE/TIME: 05/19/24 0920 ORDERING PHYSICIAN: OBDULIO BELCHER PROCEDURE(s): RHIP - R HIP COMPLETE XRAY REASON: right hip pain ORDER NUMBER(s): [id number], ACCESSION NUMBER(s): [id number] EXAM: XY R HIP COMPLETE XRAY CLINICAL HISTORY: right hip pain COMPARISON: None TECHNIQUE: XY R HIP COMPLETE XRAY Findings/Impression: 2 views of the right hip with frontal view of the pelvis. There is no evidence of an acute fracture, dislocation, blastic, or lytic lesions. Mild degenerative changes of the right hip. No radiopaque foreign bodies. No joint effusion or superficial soft tissue abnormalities. ATED BY: HOA BLACKWELL DO DICTATED DATE/TIME: 05/21/24 1417 ORDERING PHYSICIAN: OBDULIO BELCHER PROCEDURE(s): CXR2 - CHEST TWO VIEWS ROUTINE REASON: sob ORDER NUMBER(s): [id number], ACCESSION NUMBER(s): [id number] CHEST TWO VIEWS ROUTINE, HISTORY: sob COMPARISON: None None TECHNICAL DATA: 2 view of the chest was obtained. FINDINGS: Lines and tubes: None Cardiomediastinal silhouette: normal Pulmonary vasculature: normal Lung expansion: normal Lung airspace: normal Lung interstitium: normal Pleura: prosper Pneumothorax: no Bones: Unremarkable Other: no IMPRESSION: No acute intrathoracic abnormality. ATED BY: ALAN COOPER MD DICTATED DATE/TIME: 05/22/24 1436 ORDERING PHYSICIAN: OBDULIO BELCHER PROCEDURE(s): ABDL - ABDOMEN LIMITED REASON: ascitis, fluid check ORDER NUMBER(s): [id number], ACCESSION NUMBER(s): [id number] Ultrasound abdomen limited INDICATION: ascitis, fluid check Technique: 2-D real-time ultrasound was performed with axial and sagittal images submitted for evaluation. FINDINGS: 4 quadrant ultrasound shows minimal ascites present in the right upper quadrant, in the right lower quadrant and in the left lower quadrant. No ascites seen in the left upper quadrant IMPRESSION: 1. Minimal ascites RING PHYSICIAN: MARICARMEN GOSS PROCEDURE(s): LELB - L ELBOW 2 VIEW XRAY REASON: left elbow pain ORDER NUMBER(s): [id number], ACCESSION NUMBER(s): [id number] PROCEDURE: Left elbow radiographs. INDICATION: left elbow pain TECHNIQUE: 2 views of the left elbow were obtained. COMPARISON: None FINDINGS: There is increased sclerosis in the distal humerus which may reflect old fracture. There is no evidence of acute fracture or dislocation. Joint spaces are maintained. The soft tissues are unremarkable. IMPRESSION: 1. No acute fracture or dislocation. ATED BY: GERTRUDE TOMLINSON MD DICTATED DATE/TIME: 05/24/24 1628 Condition at Discharge: Stable Final Diagnosis/Problems List Abdominal pain, likely due to constipation and UTI ruled out obstruction UTI Possible acute Hepatic encephalopathy Decompensated liver cirrhosis, possibly due to alcohol hepatitis Hypernatremia hypoalbuminemia Obesity Discharge Disposition: Home Discharge Instruct/Medications Diet: Cardiac 2g Na,low cholest Activity: No Restrictions, As Tolerated Follow Up/Referral: FU with PCP in 1 week Medications: continue home meds as prescribed continue aldactone and lasix refilled simethicone, levothyroxine Discharge Statement: "Patient was advised to return to the ER or call 911 if any headaches, dizziness, shortness of breath, chest pain, abdominal pain, bleeding, fevers, or worsening of medical condition. Patient was counseled about treatment plan, medications, possible side effects, patientverbalized understanding. All questions were answered to the best of my ability. This discharge took greater then 30 minutes in planning, reviewing documentation, counseling the patient, and discussing with other team members." ASSESSMENT ASSESSMENT Assessment Abdominal pain, likely due to constipation and UTI ruled out obstruction UTI Possible acute Hepatic encephalopathy Decompensated liver cirrhosis, possibly due to alcohol hepatitis Hypernatremia hypoalbuminemia Obesity Addendum Addendum Addendum I was physically present for the sierra portions of the service provided to patient by THE RESIDENT. I have reviewed the documentation, discussed the case with resident and agree with the resident's documentation except as noted. Also the patient's clinical case was discussed with the patient's nurse. This medical document was created using an electronic medical record system with computerized dictation system. Although this document has been carefully reviewed, there might still be some phonetic and typographical errors. These areas are purely typographical due to imperfections of the software programs, and do not reflect any compromise in the patient's medical care. Late signature. Date of Service: May 25, 2024 Billing Provider: OLU MOSER MD Common Visit Codes: 42262-[id number] INP/OBS CARE(HIGH) (Discharge was planned for above May 252023 but she left on May 26, 2024) Secondary Visit Codes: 62053-PXRHZ CHNG SMOKING >10MIN (Counseled on alcohol use cessation for 18 minutes), 66242-LEJVBXRS CARE PLAN 30 MINUTES (20 minutes) MARICARMEN GOSS RESIDENT May 25, 2024 22:41 OLU MOSER MD May 27, 2024 06:13
[2024-05-26 01:00] VITALS: BP 106/60; PULSE 77; RESP 18; TEMP 98.7; O2SAT 96
[2024-05-26 05:00] VITALS: BP 135/94; PULSE 85; RESP 18; TEMP 98.8; O2SAT 92
[2024-05-26 08:00] VITALS: PULSE 85; RESP 18; O2SAT 92
[2024-05-26 09:00] VITALS: BP 102/62; PULSE 82; RESP 21; TEMP 98.1; O2SAT 100
--- NOTE | 2024-05-26 22:47 | DVHPNRES ---
Progress Note Date Seen: May 26, 2024 Resident Creating Document: MARICARMEN GOSS RESIDENT Medical Necessity Reason Pt with a Central, PICC or Fol: No Subjective Review of Systems Patient seen and examined today. She is doing well and has no new complaints. Patient was discharge home yesterday. She did not leave because she did not have a ride to pick her up. But her ride came today around 11am and was taken home. Constitutional: Denies fever no chills no feeling of malaise HEENT: Denies headache, ear pain, ear discharges, conjunctivitis, nasal discharge throat pain Cardiovascular: Denies chest pain, palpitation, orthopnea, PND, or pedal edema Respiratory: Denies shortness of breath, cough cough, sputum production, hemoptysis, GI: Denies abdominal pain, nausea, vomiting, diarrhea, hematemesis, hematochezia, : Denies frequency, urgency, hematuria, Endocrine: Denies unintentional weight gain or weight loss, feeling of hot flashes, Arjun: Denies easy bruising, bleeding disorders, epistaxis Musculoskeletal: Left elbow pain is better Psych: No evidence of depression, kerri, suicidal ideatio Objective vital signs Vital Sign Date Time Temp Pulse Resp B/P (MAP) Pulse Ox O2 Delivery O2 Flow Rate FiO2 05/26/24 09:22 102/62 05/26/24 09:00 98.1 82 21 100 98.1 05/26/24 08:00 Room Air* 0 21 Total Intake and Output 05/25/24 05/25/24 05/26/24 15:00 23:00 07:00 Intake Total 434 ml 875 ml 600 ml Balance 434 ml 875 ml 600 ml Examination Physical examination on the actual day of discharge May 26, 2024: General: Not in acute distress, lying in bed HEENT: PEERLA, no acute nasal discharge, Tongue looked beefy red Chest: S1-S2 audible, rate and rhythm regular, no murmur Lung: CTAB, no wheeze or rhonchi Abdomen: Nondistended, BS+, nontenderness, no organomegaly Musculoskeletal: no acute joint swelling or tenderness extremity: no leg edema, mild left elbow tenderness Neurological: cranial nerves intact, no acute dysarthria or dysphagia Psychiatry--> Normal mood and affect Skin- no acute rash or purpura laboratory and microbiology Laboratory Tests 05/25/24 05:24 Test 05/25/24 05:24 Range/Units Serum Glucose 114 H 74-106 mg/dL Microbiology Date/Time Source Procedure Growth Status 05/22/24 10:33 Blood Blood Culture - Preliminary NO GROWTH AFTER 72 HOURS OF INCUBATION. Resulted 05/22/24 09:25 Voided Urine Urine Culture - Final Complete Labs and/or images reviewed: Labs reviewed by me, Image(s) reviewed by me Problem List/Assessment/Plan Problem List/Assessment/Plan Abdominal pain secondary to constipation UTI Possible acute Hepatic encephalopathy lactic acidosis improved after initial octreotide and albumin Hypokalemia--improved Hypernatremia hypoalbuminemia Generalized joint pains Obesity Vitamin deficiency COVID and influenza negative Re counseled on alcohol use cessation for 18 minutes Discharge summary documented on May 25, 2024 Case and plan discussed with Dr. Moser Plan discussed with: Patient, Other (Nurse) Dietary Evaluation Review Comments: 1) Consider Prostat 1 pkt BID 2) Continue current plan of care Expected Outcomes/Goals: F/U in 3-5 days Addendum Addendum Addendum I was physically present for the sierra portions of the service provided to patient by THE RESIDENT. I have reviewed the documentation, discussed the case with resident and agree with the resident's documentation except as noted. Also the patient's clinical case was discussed with the patient's nurse. This medical document was created using an electronic medical record system with computerized dictation system. Although this document has been carefully reviewed, there might still be some phonetic and typographical errors. These areas are purely typographical due to imperfections of the software programs, and do not reflect any compromise in the patient's medical care. Late signature. Date of Service: May 26, 2024 Billing Provider: OLU MOSER MD Common Visit Codes: 12807-JAE/OBS DISCH DAY >30min Secondary Visit Codes: 10282-QKBQS CHNG SMOKING >10MIN (Re counseled on alcohol use cessation for 18 minutes) MARICARMEN GOSS RESIDENT May 26, 2024 22:46 OLU MOSER MD May 27, 2024 06:16
== END 2024-05-26 11:05 | disposition home or self-care (01) | DRG 247 ==
LOC: ER 12:26 → OVERFLOW 21:50 → TELE-WESTW 21:53 → TELE 21:53 → TELE-WESTW 05-19 23:08
PROVIDERS: ADMIT Internal Medicine; ATTEND Internal Medicine
DX: K56.41 Fecal impaction (principal); G93.41 Metabolic encephalopathy; E43 Unspecified severe protein-calorie malnutrition; K76.82 Hepatic encephalopathy; E87.0 Hyperosmolality and hypernatremia; E87.20 Acidosis, unspecified; K70.10 Alcoholic hepatitis without ascites; N30.00 Acute cystitis without hematuria; K70.30 Alcoholic cirrhosis of liver without ascites; Z20.822 Contact with and (suspected) exposure to COVID-19; E66.9 Obesity, unspecified; Z68.38 Body mass index [BMI] 38.0-38.9, adult; E88.09 Other disorders of plasma-protein metabolism, not elsewhere classified; E03.9 Hypothyroidism, unspecified; Z83.3 Family history of diabetes mellitus; E56.9 Vitamin deficiency, unspecified; J45.909 Unspecified asthma, uncomplicated; E87.6 Hypokalemia; Z83.2 Family history of diseases of the blood and blood-forming organs and certain disorders involving the immune mechanism
CPT/HCPCS: 36415; 71046; 73070; 73502; 74018; 76705; 80048; 80053; 80202; 80307; 80320; 81001; 82140; 82248; 82270; 82962; 83605; 83735; 83880; 84484; 85025; 85610; 85730; 86704; 86706; 86708; 86803; 87040; 87086; 87340; 87426; 87804; 93005; 96360; 97163; G0378; J2405; J2470; J3490; P9047